=== PATIENT | male | born 1940 | race Caucasian/White ===

== ENCOUNTER 2022-06-06 11:03 | Outpatient (REF) | payer MEDICARE, SELFPAY ==
--- NOTE | ~2022-06-06 | XR_ITS ---
EXAMINATION: XR SINUSES CLINICAL INFORMATION: Sinusitis COMPARISON: None TECHNIQUE: 3 views of the sinuses were obtained. FINDINGS: Paranasal sinuses appear clear without air-fluid levels. No fractures are identified. No radiodense foreign bodies. The mastoid air sinuses are well aerated and clear. XR/XR sinus min 3V IMPRESSION: Unremarkable sinus exam. No radiopaque foreign body seen.
== END 2022-06-06 11:04 | disposition home or self-care (01) ==
LOC: HO.XRAY 11:03
PROVIDERS: PCP Family Medicine; Visit Provider Otolaryngology
DX: J01.91 Acute recurrent sinusitis, unspecified (principal)
CPT/HCPCS: 70220

== ENCOUNTER 2022-10-28 08:34 | Outpatient (REF) | payer MEDICARE, SELFPAY ==
[2022-10-28 11:24] LABS: MANUAL DIFF FLAG NO
[2022-10-28 11:48] LABS: Basophils Absolute Auto 0.1 X10*3/uL (0.0-0.2); Basophils Percent Auto 0.8 % (0-2); Eosinophils Absolute Auto 0.1 X10*3/uL (0.0-0.4); Eosinophils Percent Auto 2.2 % (0-4); Hematocrit 37.8 % (42.0-52.0); Hemoglobin 13.1 g/dl (14.0-18.0); Imm Gran Abs Auto 0.03 X10*3/uL (0.00-0.03); Imm Gran Pct Auto 0.5 % (0.0-0.4); Lymphocytes Absolute Auto 1.9 X10*3/uL (1.2-4.9); Lymphocytes Percent Auto 31.3 % (20-40); Mean Corpuscular HGB Conc 34.7 g/dl (31.0-36.0); Mean Corpuscular Hemoglobin 32.3 pg (27.0-33.0); Mean Corpuscular Volume 93.1 fL (80.0-98.0); Mean Platelet Volume 10.2 fL (9.4-12.4); Monocytes Absolute Auto 0.5 X10*3/uL (0.1-1.2); Monocytes Percent Auto 8.6 % (2-11); Neutrophils Absolute Auto 3.4 x10*3/uL (2.0-8.3); Neutrophils Percent Auto 56.6 % (45-73); Platelet Count 140 X10*3/uL (160-400); Red Blood Count 4.06 X10*6/uL (4.60-5.80); Red Cell Distribution Width 12.3 % (11.0-16.0)
[2022-10-28 11:49] LABS: Appearance Urine Clear; Color Urine Yellow; Glucose Urine UA Negative (Negative); Leukocyte Esterase Urine Negative (Negative); Nitrite Urine Negative (Negative); PH 6.5 (5.0-9.0); Specific Gravity - Urine 1.015 (1.005-1.025); UMIC TRIGGER UA YES; Urine Blood Negative (Negative); Urine Ketones Negative (Negative); Urine Protein 30 (1+) mg/dL (Neg-Trace)
[2022-10-28 11:53] LABS: Estimated Average Glucose 140 mg/dL; Hemoglobin A1c % 6.5 %
[2022-10-28 11:56] LABS: Bacteria Urine None Seen (None Seen); Hyaline Casts Urine 0-2 /LPF (0-2); RBC Urine 0-2 /HPF (0-2); Squamous Epithelial Cell Urine 0-2 /HPF (0-2); WBC Urine 0-5 /HPF (0-5)
[2022-10-28 12:31] LABS: Alanine Aminotransferase 56 U/L (0-40); Albumin Level 4.3 g/dL (3.5-5.0); Alkaline Phosphatase 74 U/L (39-117); Anion Gap 14 (12-20); Aspartate Amino Transferase 52 U/L (5-37); Bilirubin Total 0.7 mg/dL (0.0-1.0); Blood Urea Nitrogen 13 mg/dL (9-16); Calcium 9.1 mg/dL (8.4-10.2); Carbon Dioxide 26 mmol/L (22-29); Chloride 104 mmol/L (96-108); Cholesterol 237 mg/dL; Estimated Glomerular Filt Rate > 60; Glucose Fasting 143 mg/dL (60-99); HDL Cholesterol 73 mg/dL; Potassium 3.8 mmol/L (3.3-5.1); Sodium 140 mmol/L (135-145); Total Protein 7.2 g/dL (6.5-8.0); Triglycerides 651 mg/dL
[2022-10-28 12:34] LABS: Prostate Specific Antigen Scr 2.12 ng/mL (<0.05-4.0); TSH reflex Free T4 2.22 uIU/mL (0.32-4.0)
[2022-10-28 12:39] LABS: Creatinine Urine 88.89 mg/dL; Microalbum/Creatinine Ratio Ur 143.9 ug/mg cr
== END 2022-10-28 08:35 | disposition home or self-care (01) ==
LOC: HO.WFDLDS 08:34
PROVIDERS: Visit Provider Family Medicine
DX: Z00.00 Encounter for general adult medical examination without abnormal findings (principal); I10 Essential (primary) hypertension; R73.01 Impaired fasting glucose; Z12.5 Encounter for screening for malignant neoplasm of prostate
CPT/HCPCS: 36415; 80053; 80061; 81001; 82043; 83036; 84153; 84443; 85025

== ENCOUNTER 2023-02-05 09:50 | Outpatient (REF) | payer MEDICARE, SELFPAY ==
[2023-02-05 11:15] LABS: MANUAL DIFF FLAG NO
[2023-02-05 11:38] LABS: Basophils Absolute Auto 0.1 X10*3/uL (0.0-0.2); Eosinophils Absolute Auto 0.4 X10*3/uL (0.0-0.4); Eosinophils Percent Auto 6.1 % (0-4); Hematocrit 37.1 % (42.0-52.0); Hemoglobin 12.6 g/dl (14.0-18.0); Imm Gran Abs Auto 0.03 X10*3/uL (0.00-0.03); Imm Gran Pct Auto 0.5 % (0.0-0.4); Lymphocytes Absolute Auto 1.4 X10*3/uL (1.2-4.9); Lymphocytes Percent Auto 22.6 % (20-40); Mean Corpuscular Hemoglobin 31.7 pg (27.0-33.0); Mean Corpuscular Volume 93.2 fL (80.0-98.0); Mean Platelet Volume 10.5 fL (9.4-12.4); Monocytes Absolute Auto 0.6 X10*3/uL (0.1-1.2); Monocytes Percent Auto 9.9 % (2-11); Neutrophils Absolute Auto 3.6 x10*3/uL (2.0-8.3); Neutrophils Percent Auto 59.9 % (45-73); Platelet Count 149 X10*3/uL (160-400); Red Blood Count 3.98 X10*6/uL (4.60-5.80); Red Cell Distribution Width 12.2 % (11.0-16.0); White Blood Count 6.1 X10*3/uL (4.8-10.8)
[2023-02-05 11:41] LABS: Appearance Urine Clear; Color Urine Yellow; Glucose Urine UA Negative (Negative); Leukocyte Esterase Urine Negative (Negative); Nitrite Urine Negative (Negative); PH 5.5 (5.0-9.0); Specific Gravity - Urine 1.025 (1.005-1.025); UMIC TRIGGER UA YES; Urine Blood Negative (Negative); Urine Ketones Negative (Negative); Urine Protein 30 (1+) mg/dL (Neg-Trace)
[2023-02-05 11:51] LABS: Bacteria Urine None Seen (None Seen); Hyaline Casts Urine 0-2 /LPF (0-2); RBC Urine 0-2 /HPF (0-2); Squamous Epithelial Cell Urine 0-2 /HPF (0-2); WBC Urine 0-5 /HPF (0-5)
[2023-02-05 12:26] LABS: Alanine Aminotransferase 32 U/L (0-40); Albumin Level 4.1 g/dL (3.5-5.0); Alkaline Phosphatase 46 U/L (39-117); Anion Gap 14 (12-20); Aspartate Amino Transferase 31 U/L (5-37); Bilirubin Total 0.6 mg/dL (0.0-1.0); Blood Urea Nitrogen 19 mg/dL (9-16); Calcium 9.4 mg/dL (8.4-10.2); Carbon Dioxide 21 mmol/L (22-29); Chloride 110 mmol/L (96-108); Cholesterol 164 mg/dL; Estimated Glomerular Filt Rate > 60; Glucose Fasting 131 mg/dL (60-99); HDL Cholesterol 71 mg/dL; LDL Cholesterol Calculated 74 mg/dl; Potassium 3.8 mmol/L (3.3-5.1); Sodium 141 mmol/L (135-145); Triglycerides 99 mg/dL
[2023-02-07 17:58] LABS: LDL Cholesterol Direct 78 mg/dL (<100)
== END 2023-02-05 09:51 | disposition home or self-care (01) ==
LOC: HO.WFDLDS 09:50
PROVIDERS: Visit Provider Family Medicine
DX: Z00.00 Encounter for general adult medical examination without abnormal findings (principal); R74.8 Abnormal levels of other serum enzymes; D64.9 Anemia, unspecified; E78.5 Hyperlipidemia, unspecified
CPT/HCPCS: 36415; 80053; 80061; 81001; 83721; 85025

== ENCOUNTER 2023-02-17 13:17 | Outpatient (AMB) | payer MEDICARE, SELFPAY ==
--- NOTE | 2023-02-17 13:21 | MHC.PC.OV ---
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 Accompanied by: Self / Same As Patient Allergies metformin Allergy (Verified 02/17/23 13:40) Diarrhea Medication List - Last Reconciled 02/17/23 by Raysa Littlejohn CNP amlodipine 5 mg PO QAM 90 days atorvastatin 80 mg PO DAILY 90 days fenofibrate micronized 200 mg PO QPM 90 days glipizide ER 10 mg PO QAM 90 days lisinopril 40 mg PO QAM 90 days metoprolol succinate ER 50 mg PO QAM 90 days Tobacco use date assessed: 02/17/23 Fall risk assessment: 2 + Falls in past year Last assessed Fall Risk: 02/17/23 Dental Screening Dental Screen Date: 02/17/23 Did you have a dental visit in the last 12 months?: No Did you have a dental problem in the last 6 months where you did not have access to dental care?: No Was dental information given to patient?: Patient has dentist HPI HPI Comments History of Present Illness Details 82-year-old male presents for review of recent lab results. He had elevated lipids and liver enzymes. He also had mild anemia. He notes that he has been taking his medications as prescribed. He reports chronic bilateral shoulder pain, left worse than right. He takes naproxen with significant improvement. He notes that he drinks alcohol socially, 1 glass of mixed whisky daily, 1 beers on weekends. 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 Seth Zhang, Vicky Wright, Johnie Crowley and colleagues, with an educational heike from [employer]. Review of Systems Const Details: Const Denies chills, Denies fatigue, Denies fever(s), Denies headache(s) and Denies weakness ENT Denies dizziness and Denies headache(s) Card Denies chest pain, Denies lightheadedness, Denies dyspnea and Denies other (Palpitations) Resp Denies cough, Denies dyspnea, Denies wheezing and Denies other ( shortness of breath) GI Denies abdominal pain, Denies melena, Denies hematochezia, Denies change in bowel habits, Denies dyspepsia and Denies nausea Denies hematuria and Denies dysuria Musc Reports bilat shoulder pain, Denies abnormal gait, Denies numbness and Denies tingling Skin/Breast Denies rash, Denies unusual bruising and Denies wounds Neuro Denies abnormal gait, Denies dizziness, Denies headache(s), Denies memory loss, Denies numbness, Denies Sensory deficit (Neuro), Denies tingling and Denies weakness Psych Denies anxiety and Denies depression Endo Denies fatigue Aller/Immun Denies wheezing Physical exam (Primary Care) Vital Signs: Last Vital Signs Pulse 80 02/17/23 13:22 BP 132/72 02/17/23 13:22 Pulse Ox 98 02/17/23 13:22 BMI result Body Mass Index 27.8 Tobacco/Smoking Status: Tobacco use Status Tobacco use date assessed 02/17/23 02/17/23 13:22 Patient Tobacco Use Status Never used Tobacco 02/17/23 13:22 e-Cigarette/Vaping Use Never Used 02/17/23 13:22 Thrive Assessment: Date of Thrive Assessment Date Thrive assessed 08/23/22 02/17/23 13:22 Const Other: General: no acute distress and well developed Nutritional Appearance: well nourished Orientation/consciousness: patient oriented x3 HENMT Head: Yes normocephalic and Yes atraumatic Eyes General: appearance normal, both eyes and all related structures Pupils: Equal, round and reactive pupils present EOM: EOMs intact bilaterally Resp Effort & Inspection: normal respiratory effort Auscultation: clear to auscultation bilaterally Cardio Rate: regular rate Rhythm: regular rhythm Heart sounds: S1 normal heart sound present, S2 normal heart sound present, no gallops, no murmurs and no rubs GI Palpation (GI): No Abdominal aortic bruit present, Soft to palpation, nontender, No hepatosplenomegaly present and No Rebound tenderness present Auscultation: normal bowel sounds General: Yes no CVA tenderness Back/Spine/Pelvis Back: no CVA tenderness Cervical Spine: cervical ROM normal and No Cervical spine tenderness Thoracic/Lumbar Spine: thoraco-lumbar ROM normal, No pain with thoraco-lumbar ROM, No thoracic spinal tenderness and No lumbar spinal tenderness Extrem General: Yes normal to inspection, No edema and No calf tenderness Limited ROM of the left shoulder Skin General: warm and dry. Normal skin color. Normal skin turgor Lesions: no lesions Rashes: no rashes Trauma: no lacerations or abrasions Wounds: no wounds Nails: normal Neuro General: patient oriented x3, gait normal and no focal neuro deficit Cranial nerves: Yes Equal, round and reactive pupils present Cognition (Neuro): normal cognition Gait exam (Neuro): Normal gait present Sensory Exam: No Sensory deficit (Neuro) Psych Affect: normal affect Results AMB Hemoglobin A1c AMB Hemoglobin A1c 6.4 % Last Edit by Gal Guerrero CMA on 02/17/23 14:01 Assessment and Plan Assessment & Plan (1) Elevated liver enzymes: Code(s): R74.8 - Abnormal levels of other serum enzymes Plan: Liver enzymes have improved and currently normal Healthy diet encouraged Advised to avoid alcohol consumption Verbalized understanding and agreed with the plan. (2) Alcohol use: Code(s): Z78.9 - Other specified health status Plan: As above (3) Hyperlipidemia: Code(s): E78.5 - Hyperlipidemia, unspecified Plan: He is on Atorvastatin and Fenofibrate Lipid levels have improved and currently WNL Continue with current treatment regimen Routine exercise encouraged Follow-up with PCP as planned Verbalized understanding and agreed with treatment plan. (4) Mild anemia: Code(s): D64.9 - Anemia, unspecified Plan: Patient has a normocytic mild anemia with mild thrombocytopenia Follow-up with PCP as planned. May referred to Hematology and Oncology Verbalized understanding and agreed with plan. (5) Hypertension: Code(s): I10 - Essential (primary) hypertension Plan: His blood pressure is controlled, 132/72, slightly above goal of less than 130/80 Continue current treatment regimen Low-sodium diet encouraged Follow-up with PCP as planned Verbalized understanding and agreed with treatment plan. (6) Diabetes: Code(s): E11.9 - Type 2 diabetes mellitus without complications Plan: His A1c 6.4% today, within goal of less than 7.0% Continue with current treatment regimen ADA diet and routine exercise encouraged Follow-up with PCP as planned Verbalized understanding and agreed with treatment plan. (7) Bilateral shoulder pain: Code(s): M25.511 - Pain in right shoulder; M25.512 - Pain in left shoulder Plan: He reports chronic bilateral shoulder pain, left worse than right. He takes naproxen with significant improvement. Limited ROM of the left shoulder, no overt trauma or injury noted Continue with current treatment regimen Warm/cold compresses encouraged Return with new or worsening symptoms Verbalized understanding and agreed with treatment plan. Orders: Orders AMB Hemoglobin A1c Today E11.9 - Type 2 diabetes mellitus without complications AMB Hemoglobin A1c Today Z13.9 - Encounter for screening, unspecified Coding Level of Care Code Est Pt Level 4 (97769) Diagnoses Elevated liver enzymes R74.8 Alcohol use Z78.9 Hyperlipidemia E78.5 Mild anemia D64.9 Hypertension I10 Diabetes E11.9 Bilateral shoulder pain M25.511; M25.512 Time Spent (min) 35
[2023-02-17 13:22] VITALS: BP 132/72; PULSE 80; O2SAT 98; BMI 27.8
== END 2023-02-17 14:11 | disposition home or self-care (01) ==
PROVIDERS: PCP Family Medicine; Visit Provider Nurse Practitioner Family
DX: R74.8 Abnormal levels of other serum enzymes (principal); I10 Essential (primary) hypertension; E11.9 Type 2 diabetes mellitus without complications; Z78.9 Other specified health status; E78.5 Hyperlipidemia, unspecified; D64.9 Anemia, unspecified; M25.511 Pain in right shoulder; M25.512 Pain in left shoulder
CPT/HCPCS: 83036; 99214

== ENCOUNTER 2023-03-07 10:46 | Outpatient (AMB) | payer MEDICARE, SELFPAY ==
[2023-03-07 10:49] VITALS: BP 130/76; PULSE 75; O2SAT 98; BMI 27.7
--- NOTE | 2023-03-07 10:49 | A.OFFPC_ITS ---
Vital Signs 03/07/23 10:49 Height 5 ft 9 in Weight 187 lb 6 oz BMI 27.7 BP 130/76 Blood Pressure Location Lt brachial Position Sitting Pulse 75 Pulse Source Pulse Oximeter Pulse Oximetry (%) 98 Oxygen Delivery Method Room Air Intake Visit Reasons: L shoulder pain Intake Note: Patient is here with complaint of left shoulder pain and would like recommendation to orthopedic doctors. Allergies metformin Allergy (Verified 03/07/23 10:56) Diarrhea Tobacco use date assessed: 03/07/23 Fall risk assessment: 2 + Falls in past year Last assessed Fall Risk: 03/07/23 Dental Screening Dental Screen Date: 03/07/23 Did you have a dental visit in the last 12 months?: No Did you have a dental problem in the last 6 months where you did not have access to dental care?: No Was dental information given to patient?: No HPI L shoulder pain HPI Details 82 y/o male presents today with L shoulder pain. Has reported chronic bilateral shoulder pain L worse than R and has been taking naproxen for relief. 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 Seth Zhang, Vicky Wright, Johnie Crowley and colleagues, with an educational heike from [employer]. Review of Systems Musc Details: L shoulder pain Physical exam (Primary Care) Vital Signs: Last Vital Signs Pulse 75 03/07/23 10:49 BP 130/76 03/07/23 10:49 Pulse Ox 98 03/07/23 10:49 Oxygen Delivery Method Room Air 03/07/23 10:49 BMI result Body Mass Index 27.7 Tobacco/Smoking Status: Tobacco use Status Tobacco use date assessed 03/07/23 03/07/23 11:02 Patient Tobacco Use Status Never used Tobacco 03/07/23 11:02 e-Cigarette/Vaping Use Never Used 03/07/23 11:02 Thrive Assessment: Date of Thrive Assessment Date Thrive assessed 08/23/22 03/07/23 11:02 Assessment and Plan Assessment & Plan (1) Left shoulder pain: Code(s): M25.512 - Pain in left shoulder Plan: Left shoulder pain with decreased abduction and internal rotation He can continue using naproxen once daily and I will give him diclofenac gel as well Can use ice/heat Will start physical therapy He has had surgery on his right shoulder for similar symptoms. He would like referral to orthopedics and I have referred him to Dr. Bragg Orders: Orders PT Evaluation and Treatment Today M25.512 - Pain in left shoulder Referrals Orthopedics Referral M25.512 - Pain in left shoulder Coding Level of Care Code Est Pt Level 3 (28442) Diagnoses Left shoulder pain M25.512
== END 2023-03-07 12:00 | disposition home or self-care (01) ==
PROVIDERS: PCP Family Medicine; Visit Provider Family Medicine
DX: M25.512 Pain in left shoulder (principal)
CPT/HCPCS: 99213

== ENCOUNTER 2023-03-27 12:21 | Outpatient (REF) | payer MEDICARE, SELFPAY ==
--- NOTE | ~2023-03-27 | XR_ITS ---
EXAMINATION: XR SHOULDER, LEFT CLINICAL INFORMATION: Pain. COMPARISON: None available. TECHNIQUE: 3 views of the left shoulder. FINDINGS: Acromial spurring is present here. Irregularity at the insertion of the superior rotator cuff. The glenohumeral articulation is within normal limits. No acute bony finding. XR/XR shoulder LT min 2V IMPRESSION: Degenerative changes as described. Findings may well preclude to impingement. If further evaluation is warranted, consider MR.
== END 2023-03-27 12:22 | disposition home or self-care (01) ==
LOC: HO.HOSX 12:21
PROVIDERS: Visit Provider Orthopaedic Surgery
DX: Z13.89 Encounter for screening for other disorder (principal)

== ENCOUNTER 2023-04-10 08:42 | Outpatient (AMB) | payer MEDICARE, SELFPAY ==
--- NOTE | 2023-04-10 08:48 | A.OFFVIS_ITS ---
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 He was referrd by his PCP who also provided him with a diclofenac topical gel. Hx of right RTC Repair. He reports that he has had ongoing shoulder pain for about 2 months now. He does not recall any injury, but he states that this shoulder is feeling about the same as the right did prior to surgery. He is interested in having a cortisone injection as he has had them in the right shoulder with good relif. 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 HPI Details 82 year old with left shoulder pain for 6 months No injury Pain at night and with overhead work [facility] Medical History (Updated 04/11/23 @ 08:41 by Daniele Bragg MD) Dysfunction of left rotator cuff Surgical History (Updated 04/10/23 @ 08:53 by Lacey Busch [facility]) H/O cervical spine surgery H/O rotator cuff surgery History of hip replacement Family History Father Diabetes Social History Household Members: Spouse Housing: House Alcohol intake: current Alcohol intake frequency: 0-2 drinks per day Patient Tobacco Use Status: Never used Tobacco e-Cigarette/Vaping Use: Never Used service: No Current occupational status: employed (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 Site was prepped using aseptic technique. Patient tolerated the procedure well. Primary Site: left shoulder Coding 79612 - Glenohumeral/Tronchanteric Bursa/Intraarticular Procedure code (CPT) selection complete Results Reviewed Results Reviewed: 04/10/23 08:54 BUPivacaine MPF 0.25 % [Sensorcaine-MPF 0.25% 10 ML] 10 ml .ROUTE .STK-MED ONE Lidocaine HCl 2 % MPF [Xylocaine 2 % MPF] 5 ml .ROUTE .STK-MED ONE 04/10/23 08:55 dexAMETHasone sod phosphate [Decadron] 4 mg .ROUTE .STK-MED ONE I personally reviewed relevant radiographs. Subacormial spurring but otherwise unremarkable left shoulder radiograph Assessment & Plan Assessment & Plan (1) Dysfunction of left rotator cuff: Code(s): M67.912 - Unspecified disorder of synovium and tendon, left shoulder Plan: Left shoulder pain with RTC weakness and unremarkable radiographs. Injected left shoulder and discussed PT. Will defer on PT for now and f/u PRN Orders: Orders XR shoulder LT min 2V 04/10/23 M25.519 - Pain in unspecified shoulder Coding Level of Care Code New Pt Level 3 (29802) Diagnoses Dysfunction of left rotator cuff M67.912 CPT Codes Coding - Joint 7: 08052 - Glenohumeral/Tronchanteric Bursa/Intraarticular ([id number])
[2023-04-10 08:50] VITALS: BMI 27.6
== END 2023-04-10 09:13 | disposition home or self-care (01) ==
PROVIDERS: PCP Family Medicine; Visit Provider Orthopaedic Surgery
DX: M67.912 Unspecified disorder of synovium and tendon, left shoulder (principal)
CPT/HCPCS: 20610; 99204

== ENCOUNTER → 2023-04-10 08:42 | Outpatient (BNVA) | payer MEDICARE, SELFPAY | PROVIDERS: PCP Family Medicine; Visit Provider Orthopaedic Surgery | DX: M67.912 Unspecified disorder of synovium and tendon, left shoulder (principal); M25.512 Pain in left shoulder | CPT/HCPCS: 20610; 73030; 99202; J1100 ==

== ENCOUNTER 2023-05-07 08:49 | Outpatient (REF) | payer MEDICARE, SELFPAY ==
[2023-05-07 11:23] LABS: MANUAL DIFF FLAG NO
[2023-05-07 11:51] LABS: Basophils Percent Auto 0.8 % (0-2); Eosinophils Absolute Auto 0.1 X10*3/uL (0.0-0.4); Eosinophils Percent Auto 3.6 % (0-4); Hematocrit 35.8 % (42.0-52.0); Hemoglobin 12.5 g/dl (14.0-18.0); Imm Gran Abs Auto 0.01 X10*3/uL (0.00-0.03); Imm Gran Pct Auto 0.3 % (0.0-0.4); Lymphocytes Absolute Auto 0.9 X10*3/uL (1.2-4.9); Mean Corpuscular HGB Conc 34.9 g/dl (31.0-36.0); Mean Corpuscular Hemoglobin 31.6 pg (27.0-33.0); Mean Corpuscular Volume 90.4 fL (80.0-98.0); Mean Platelet Volume 10.4 fL (9.4-12.4); Monocytes Absolute Auto 0.6 X10*3/uL (0.1-1.2); Monocytes Percent Auto 17.4 % (2-11); Neutrophils Percent Auto 53.9 % (45-73); Platelet Count 104 X10*3/uL (160-400); Red Blood Count 3.96 X10*6/uL (4.60-5.80); Red Cell Distribution Width 12.5 % (11.0-16.0); White Blood Count 3.6 X10*3/uL (4.8-10.8)
[2023-05-07 12:03] LABS: Estimated Average Glucose 166 mg/dL; Hemoglobin A1c % 7.4 % (<6.0)
[2023-05-07 12:05] LABS: Cholesterol 187 mg/dL (<200); HDL Cholesterol 63 mg/dL (>40); LDL Cholesterol Calculated 95 mg/dL (<100); Triglycerides 148 mg/dL (<150)
[2023-05-07 12:39] LABS: Creatinine Urine 117.33 mg/dL; Microalbum/Creatinine Ratio Ur 148.2 ug/mg cr (<30)
== END 2023-05-07 08:50 | disposition home or self-care (01) ==
LOC: HO.WFDLDS 08:49
PROVIDERS: Visit Provider Family Medicine
DX: Z00.00 Encounter for general adult medical examination without abnormal findings (principal); D64.9 Anemia, unspecified; E11.9 Type 2 diabetes mellitus without complications; E78.5 Hyperlipidemia, unspecified; I10 Essential (primary) hypertension
CPT/HCPCS: 36415; 80061; 81001; 82043; 82570; 83036; 85025

== ENCOUNTER 2023-05-09 08:32 | Outpatient (AMB) | payer MEDICARE, SELFPAY ==
--- NOTE | 2023-05-09 08:34 | A.OFFPC_ITS ---
Vital Signs 05/09/23 08:35 Height 5 ft 9 in Weight 192 lb 6 oz BMI 28.4 BP 124/52 L Blood Pressure Location Lt brachial Position Sitting Respiration 13 Pulse 80 Pulse Source Pulse Oximeter Temp 98.7 F Temp Source Oral Pulse Oximetry (%) 98 Oxygen Delivery Method Room Air Intake Visit Reasons: f/u hyperlipidemia Intake Note: Patient presents to the office to follow up with lab work. Patient would like a print out of todays visit as well as his lab results. Patient has a concern for his right large toe. Patient reports his toe appears with a discoloration and it stings. Patient also has a concern for his left rotator cuff. Patient reports the left rotator cuff is painful. Patient reports he saw Dr. Bragg and he was informed he needed a total replacement of his shoulder. Court Collections Officer Required: No Accompanied by: Self / Same As Patient Allergies metformin Allergy (Verified 05/09/23 08:41) Diarrhea Tobacco use date assessed: 03/07/23 Fall risk assessment: 2 + Falls in past year Last assessed Fall Risk: 05/09/23 Dental Screening Dental Screen Date: 05/09/23 Did you have a dental visit in the last 12 months?: No Did you have a dental problem in the last 6 months where you did not have access to dental care?: No Was dental information given to patient?: Patient declined HPI f/u hyperlipidemia HPI Details 82 y/o male presents to f/u HLD. Labs were drawn 05/07/23. Reviewed labs with pt. Ongoing anemia. Platelet count has lowered. A1c 7.4%. He reports he has not been watching his diet recently. Triglycerides 148. TC 187. LDL 95. HDL 63. Pt has complaints of L shoulder today. HPI Comments History of Present Illness Details Documentation assistance for Sebastian Rivera MD, was provided by Garrett Velazquez,?Radial Drill Press Operator on 05/09/2023 9:11 AM EST. I, Dr. Rivera, have read, observed, and verified documentation.? 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 Seth Zhang, Vicky Wright, Johnie Crowley and colleagues, with an educational heike from [employer]. Review of Systems Const Denies chills, Denies fatigue, Denies fever(s), Denies headache(s) and Denies weakness ENT Denies dizziness and Denies headache(s) Card Denies chest pain, Denies lightheadedness, Denies dyspnea and Denies other (Palpitations) Resp Denies cough, Denies dyspnea, Denies wheezing and Denies other ( shortness of breath) Musc Denies numbness and Denies tingling Neuro Denies dizziness, Denies headache(s), Denies numbness, Denies tingling, Denies paresthesias and Denies weakness Psych Denies anxiety and Denies depression Endo Denies fatigue Aller/Immun Denies wheezing Physical exam (Primary Care) Vital Signs: Last Vital Signs Temp 98.7 F 05/09/23 08:35 Pulse 80 05/09/23 08:35 Resp 13 05/09/23 08:35 BP 124/52 L 05/09/23 08:35 Pulse Ox 98 05/09/23 08:35 Oxygen Delivery Method Room Air 05/09/23 08:35 BMI result Body Mass Index 28.4 Tobacco/Smoking Status: Tobacco use Status Tobacco use date assessed 03/07/23 05/09/23 08:34 Patient Tobacco Use Status Never used Tobacco 05/09/23 08:34 e-Cigarette/Vaping Use Never Used 05/09/23 08:34 Thrive Assessment: Date of Thrive Assessment Date Thrive assessed 08/23/22 05/09/23 08:34 Const General: no acute distress and well developed Nutritional Appearance: well nourished Orientation/consciousness: patient oriented x3 [facility] Head: Yes normocephalic and Yes atraumatic Eyes General: appearance normal, both eyes and all related structures Pupils: Equal, round and reactive pupils present EOM: EOMs intact bilaterally Resp Effort & Inspection: normal respiratory effort Auscultation: clear to auscultation bilaterally Cardio Rate: regular rate Rhythm: regular rhythm Heart sounds: S1 normal heart sound present, S2 normal heart sound present, no gallops, no murmurs and no rubs Neuro General: patient oriented x3 and gait normal Cranial nerves: Yes Equal, round and reactive pupils present Psych Affect: normal affect Assessment and Plan Assessment & Plan (1) Hyperlipidemia: Code(s): E78.5 - Hyperlipidemia, unspecified Plan: Lipids?are?controlled?on?atorvastatin?and?fenofibrate Continue?current?medication?regimen Continue?to?work?at?a?diet?low?in?saturated?fats?and?cholesterol (2) Diabetes: Code(s): E11.9 - Type 2 diabetes mellitus without complications Plan: A1c?has?worsened?and?is?above?goal?of?less?than?7.0% Encouraged?improved?diabetic?diet Continue?glipizide Added?Januvia (3) Mild anemia: Code(s): D64.9 - Anemia, unspecified Plan: Patient?has?persistent?normocytic?anemia?which?is?mild?but?has?worsened?slightly ?and?also?leukopenia?and?thrombocytopenia;?pancytopenia Referred?to?Hematology-Oncology (4) Left shoulder pain: Code(s): M25.512 - Pain in left shoulder Plan: Start?physical?therapy (5) Toe pain, right: Code(s): M79.674 - Pain in right toe(s) Plan: Referred?to?Podiatry Check?x-ray (6) Pain of right great toe: Code(s): M79.674 - Pain in right toe(s) (7) Imbalance: Code(s): R26.89 - Other abnormalities of gait and mobility Plan: Mild?imbalance?when?he?stands?up.??No?chest?pain?or?other?associated?symptoms. Likely?some?orthostasis?and?I?encouraged?him?to?increase?hydration (8) Pancytopenia: Code(s): D61.818 - Other pancytopenia Plan: As?above,?referred?to?Hematology-Oncology Orders: Orders XR foot RT 2V Today M79.674 - Pain in right toe(s) PT Evaluation and Treatment Today M25.512 - Pain in left shoulder Lipid Panel Today E78.5 - Hyperlipidemia, unspecified, Z00.00 - Encounter for general adult medical examination without abnormal findings Comprehensive Benedict. Panel Fast Today E78.5 - Hyperlipidemia, unspecified, Z00.00 - Encounter for general adult medical examination without abnormal findings Referrals Hematology & Oncology Referral D61.818 - Other pancytopenia Podiatry Referral E11.9 - Type 2 diabetes mellitus without complications, M79.674 - Pain in right toe(s) Medications: New tamsulosin (Flomax) 0.4 mg PO DAILY 30 days 30 caps 1RF sitagliptin phosphate (Januvia) 25 mg PO DAILY 30 days 30 tabs 3RF Coding Level of Care Code Est Pt Level 4 (31428) Diagnoses Hyperlipidemia E78.5 Diabetes E11.9 Mild anemia D64.9 Left shoulder pain M25.512 Toe pain, right M79.674 Pain of right great toe M79.674 Imbalance R26.89 Pancytopenia D61.818
[2023-05-09 08:35] VITALS: BP 124/52; PULSE 80; RESP 13; TEMP 37.1; O2SAT 98; BMI 28.4
== END 2023-05-09 09:17 | disposition home or self-care (01) ==
PROVIDERS: PCP Family Medicine; Visit Provider Family Medicine
DX: E78.5 Hyperlipidemia, unspecified (principal); D61.818 Other pancytopenia; E11.9 Type 2 diabetes mellitus without complications; D64.9 Anemia, unspecified; M25.512 Pain in left shoulder; M79.674 Pain in right toe(s); R26.89 Other abnormalities of gait and mobility
CPT/HCPCS: 99214

== ENCOUNTER 2023-07-17 11:09 | Outpatient (AMB) | payer MEDICARE, SELFPAY ==
--- NOTE | 2023-07-17 11:15 | MHC.OFFVIS ---
Intake Vital Signs 07/17/23 11:16 Height 5 ft 9 in Weight 192 lb BMI 28.4 Intake Visit Reasons: left shoulder Inj, last inj 04/10/23 Intake Note: Steven is an 82 year old male who presents today for a right shoulder injection, last injection done 04/10/23. This injection gave him about 2 months of relief. He would like to repeat injection Allergies metformin Allergy (Verified 05/09/23 08:41) Diarrhea HPI left shoulder Inj, last inj 04/10/23 HPI Details Steven is an 82 year old man who returns to discuss his left RTC dysfunction. He was last seen, and injected, on 04/10/23, wit ~2 months of relief. His pain has returned and he would like a repeat injection. 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, 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 Current occupational exposures/hazards: No Cognitive needs: No Hearing needs: No Vision needs: Yes Review of Systems Const All systems reviewed & are unremarkable except as noted in HPI and below Physical Exam Vital Signs: BMI result Body Mass Index 28.4 Const General: no acute distress, alert and awake Orientation/consciousness: patient oriented x3 HEENT Head: Yes normocephalic and Yes atraumatic Eyes EOM: EOMs intact bilaterally Resp Effort & Inspection: normal respiratory effort and able to speak in complete sentences Cardio Jugular venous distension: no JVD Skin General skin exam: turgor normal Rashes: no rashes Neuro General: patient oriented x3 Extrem Other: 4-/5 EC testing ER to 25 deg Psych Appearance: grossly normal Affect: normal affect Attitude: cooperative Office Procedures Joint Injection/Drain Joint Injection/Drain Details: Injected 1 mL of Decadron and 3 mL 1% lidocaine and 3 mL of 0.25% Marcaine. Site was prepped using aseptic technique. Patient tolerated the procedure well. Primary Site: left shoulder Approach Used: posterolateral Coding 39823 - Large joint Procedure code (CPT) selection complete Results Reviewed Results Reviewed: I personally reviewed relevant radiographs. ACJ OA +SA spurring No GH OA Assessment & Plan Assessment & Plan (1) Dysfunction of left rotator cuff: Code(s): M67.912 - Unspecified disorder of synovium and tendon, left shoulder Plan: Injected left shouldr PT ordered Plan Scribed for Daniele Bragg MD by Fidel Anderson, senior medical technologist, on 07/17/23 at 11:20 AM, EST. Orders: Orders PT Evaluation and Treatment Today M67.912 - Unspecified disorder of synovium and tendon, left shoulder Coding Level of Care Code Est Pt Level 3 (91876) Diagnoses Dysfunction of left rotator cuff M67.912 CPT Codes Coding - Large joint: 45157 - Large joint ([id number])
[2023-07-17 11:16] VITALS: BMI 28.4
== END 2023-07-17 11:41 | disposition home or self-care (01) ==
PROVIDERS: PCP Family Medicine; Visit Provider Orthopaedic Surgery
DX: M67.912 Unspecified disorder of synovium and tendon, left shoulder (principal)
CPT/HCPCS: 20610; 99213

== ENCOUNTER → 2023-07-17 11:09 | Outpatient (BNVA) | payer MEDICARE, SELFPAY | PROVIDERS: PCP Family Medicine; Visit Provider Orthopaedic Surgery | DX: M67.912 Unspecified disorder of synovium and tendon, left shoulder (principal) | CPT/HCPCS: 20610; 99212; J0665; J1100 ==

== ENCOUNTER 2023-08-12 08:02 | Outpatient (REF) | payer MEDICARE, SELFPAY ==
[2023-08-12 12:06] LABS: Alanine Aminotransferase 28 U/L (0-40); Alkaline Phosphatase 57 U/L (39-117); Anion Gap 8 (12-20); Aspartate Amino Transferase 25 U/L (5-37); Bilirubin Total 0.3 mg/dL (0.0-1.0); Blood Urea Nitrogen 15 mg/dL (9-16); Calcium 9.6 mg/dL (8.4-10.2); Carbon Dioxide 27 mmol/L (22-29); Chloride 107 mmol/L (96-108); Cholesterol 175 mg/dL (<200); Estimated Glomerular Filt Rate 55; Glucose Fasting 261 mg/dL (60-99); HDL Cholesterol 60 mg/dL (>40); LDL Cholesterol Calculated 85 mg/dL (<100); Potassium 3.6 mmol/L (3.3-5.1); Sodium 138 mmol/L (135-145); Triglycerides 150 mg/dL (<150)
== END 2023-08-12 08:03 | disposition home or self-care (01) ==
LOC: HO.WFDLDS 08:02
PROVIDERS: Visit Provider Family Medicine
DX: Z00.00 Encounter for general adult medical examination without abnormal findings (principal); E78.5 Hyperlipidemia, unspecified
CPT/HCPCS: 36415; 80053; 80061

== ENCOUNTER 2023-08-27 09:37 | Outpatient (AMB) | payer MEDICARE, SELFPAY ==
[2023-08-27 09:40] VITALS: BP 130/78; PULSE 81; O2SAT 98; BMI 27.9
--- NOTE | 2023-08-27 09:40 | MHC.PC.OV ---
Vital Signs 08/27/23 09:40 Height 5 ft 9 in Weight 189 lb BMI 27.9 BP 130/78 Blood Pressure Location Lt brachial Position Sitting Pulse 81 Pulse Source Pulse Oximeter Pulse Oximetry (%) 98 Oxygen Delivery Method Room Air Intake Visit Reasons: f/u HLD and diabetes Intake Note: Patient is here to follow up on HLD and diabetes. Allergies metformin Allergy (Verified 08/27/23 09:44) Diarrhea Tobacco use date assessed: 08/27/23 Fall risk assessment: 2 + Falls in past year Last assessed Fall Risk: 08/27/23 HPI f/u HLD and diabetes HPI Details 83 y/o male presents to f/u HLD and diabetes. Labs were drawn 08/12/23. Reviewed labs with pt. Fasting glucose 261. Last A1c in April 7.4%. Triglycerides 150. TC 175. LDL 85. HDL 60. He is on artovastatin 80mg daily. Blood pressure today is 130/78. He is on lisinopril 40mg, metoprolol 50mg and amlodipine 5mg. A1c today 08/27/23 is 8.1%. 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 Seth Zhang, Vicky Wright, Johnie Crowley and colleagues, with an educational heike from [employer]. Review of Systems Const Denies chills, Denies fatigue, Denies fever(s), Denies headache(s) and Denies weakness ENT Denies dizziness and Denies headache(s) Card Denies chest pain, Denies lightheadedness, Denies dyspnea and Denies other (Palpitations) Resp Reports cough, Denies dyspnea and Denies wheezing Musc Denies numbness and Denies tingling Neuro Denies dizziness, Denies headache(s), Denies numbness, Denies tingling, Denies paresthesias and Denies weakness Psych Denies anxiety and Denies depression Endo Denies fatigue Aller/Immun Denies wheezing Physical exam (Primary Care) Vital Signs: Last Vital Signs Pulse 81 08/27/23 09:40 BP 130/78 08/27/23 09:40 Pulse Ox 98 08/27/23 09:40 Oxygen Delivery Method Room Air 08/27/23 09:40 BMI result Body Mass Index 27.9 Tobacco/Smoking Status: Tobacco use Status Tobacco use date assessed 08/27/23 08/27/23 09:44 Patient Tobacco Use Status Never used Tobacco 08/27/23 09:44 e-Cigarette/Vaping Use Never Used 08/27/23 09:44 Thrive Assessment: Date of Thrive Assessment Date Thrive assessed 08/23/22 08/27/23 09:44 Const General: no acute distress and well developed Nutritional Appearance: well nourished Orientation/consciousness: patient oriented x3 HENMT Head: Yes normocephalic and Yes atraumatic Eyes General: appearance normal, both eyes and all related structures Pupils: Equal, round and reactive pupils present EOM: EOMs intact bilaterally Resp Other: Mildly distant breath sounds with upper airway secretions Effort & Inspection: normal respiratory effort Cardio Rate: regular rate Rhythm: regular rhythm Heart sounds: S1 normal heart sound present, S2 normal heart sound present, no gallops, no murmurs and no rubs Neuro General: patient oriented x3 and gait normal Cranial nerves: Yes Equal, round and reactive pupils present Psych Affect: normal affect Assessment and Plan Assessment & Plan (1) Hyperlipidemia: Code(s): E78.5 - Hyperlipidemia, unspecified Plan: Lipids?are?well?controlled?on?atorvastatin?and?fenofibrate Continue?current?medication?regimen (2) Diabetes: Code(s): E11.9 - Type 2 diabetes mellitus without complications Plan: A1c?has?worsened?and?is?now?8.1%.??Goal?is?less?than?7.0% Increase?Januvia?from?25?mg?daily?to?50?mg?daily Continue?glipizide Encouraged?a?diet?lower?in?sugars?and?starches Encouraged?weight?loss (3) Hypertension: Code(s): I10 - Essential (primary) hypertension Plan: Blood?pressure?is?controlled Continue?current?medication?regimen (4) Pancytopenia: Code(s): D61.818 - Other pancytopenia Plan: Mild?pancytopenia.??Patient?drinks?daily?and?this?may?be?the?underlying?cause?of?a?mild?pancytopenia. He?was?referred?to?Hematology-Oncology?but?did?not?find?his?way?to?the?office?and?missed?his?appointment. Rechecking?CBC. May?need?referral?to?Hematology-Oncology?again. (5) Cough: Code(s): R05.9 - Cough, unspecified Plan: Chronic?cough?and?patient?was?told?that?he?has?chronic?bronchitis. Does?have?mildly?distant?breath?sounds?with?some?upper?airway?secretions Will?give?him?a?Z-Dexter?and?check?a?chest?x-ray. (6) Imbalance: Code(s): R26.89 - Other abnormalities of gait and mobility Plan: Patient?has?some?imbalance?and?recent?falls.??Has?some?lower?extremity?calf?and?posterior?thigh?weakness. Start?physical?therapy (7) Lower extremity weakness: Code(s): R29.898 - Other symptoms and signs involving the musculoskeletal system Plan: As?above Orders: Orders Basic Metabolic Panel Today D61.818 - Other pancytopenia AMB Hemoglobin A1c Today Z13.9 - Encounter for screening, unspecified XR chest 2V Today R05.9 - Cough, unspecified PT Evaluation and Treatment Today R26.89 - Other abnormalities of gait and mobility, R29.898 - Other symptoms and signs involving the musculoskeletal system Complete Blood Count Auto Diff Today D61.818 - Other pancytopenia Medications: New azithromycin (Zithromax Z-Dexter) take 500 mg today (day 1), then 250 mg for 4 days (days 2-5) PO 6 tabs 0RF 5 days R26.89 - Other abnormalities of gait and mobility Changed From sitagliptin phosphate (Januvia) 25 mg PO DAILY 30 days 30 tabs 3RF To sitagliptin phosphate 50 mg PO DAILY 30 days 30 tabs 3RF Coding Level of Care Code Est Pt Level 4 (65350) Diagnoses Hyperlipidemia E78.5 Diabetes E11.9 Hypertension I10 Pancytopenia D61.818 Cough R05.9 Imbalance R26.89 Lower extremity weakness R29.898
== END 2023-08-27 10:30 | disposition home or self-care (01) ==
PROVIDERS: PCP Family Medicine; Visit Provider Family Medicine
DX: E78.5 Hyperlipidemia, unspecified (principal); E11.9 Type 2 diabetes mellitus without complications; I10 Essential (primary) hypertension; D61.818 Other pancytopenia; R05.9 Cough, unspecified; R26.89 Other abnormalities of gait and mobility; R29.898 Other symptoms and signs involving the musculoskeletal system
CPT/HCPCS: 99214

== ENCOUNTER 2023-08-27 10:35 | Outpatient (REF) | payer MEDICARE, SELFPAY ==
[2023-08-27 11:33] LABS: MANUAL DIFF FLAG NO
[2023-08-27 11:45] LABS: Basophils Percent Auto 0.5 % (0-2); Eosinophils Absolute Auto 0.1 X10*3/uL (0.0-0.4); Hematocrit 37.9 % (42.0-52.0); Imm Gran Abs Auto 0.03 X10*3/uL (0.00-0.03); Imm Gran Pct Auto 0.5 % (0.0-0.4); Lymphocytes Absolute Auto 1.2 X10*3/uL (1.2-4.9); Lymphocytes Percent Auto 18.9 % (20-40); Mean Corpuscular HGB Conc 34.3 g/dl (31.0-36.0); Mean Corpuscular Hemoglobin 31.1 pg (27.0-33.0); Mean Corpuscular Volume 90.7 fL (80.0-98.0); Mean Platelet Volume 10.2 fL (9.4-12.4); Monocytes Absolute Auto 0.7 X10*3/uL (0.1-1.2); Monocytes Percent Auto 10.1 % (2-11); Neutrophils Absolute Auto 4.4 x10*3/uL (2.0-8.3); Platelet Count 187 X10*3/uL (160-400); Red Blood Count 4.18 X10*6/uL (4.60-5.80); Red Cell Distribution Width 12.9 % (11.0-16.0); White Blood Count 6.4 X10*3/uL (4.8-10.8)
[2023-08-27 12:22] LABS: Anion Gap 12 (12-20); Blood Urea Nitrogen 19 mg/dL (9-16); Calcium 9.8 mg/dL (8.4-10.2); Carbon Dioxide 25 mmol/L (22-29); Chloride 107 mmol/L (96-108); Estimated Glomerular Filt Rate > 60; Glucose Random 215 mg/dL (60-115); Potassium 3.8 mmol/L (3.3-5.1); Sodium 140 mmol/L (135-145)
== END 2023-08-27 10:36 | disposition home or self-care (01) ==
LOC: HO.WFDLDS 10:35
PROVIDERS: Visit Provider Family Medicine
DX: D61.818 Other pancytopenia (principal)
CPT/HCPCS: 36415; 80048; 85025

== ENCOUNTER 2023-12-04 10:08 | Outpatient (AMB) | payer MEDICARE, SELFPAY ==
[2023-12-04 10:31] VITALS: BP 138/72; PULSE 69; O2SAT 96; BMI 28.8
--- NOTE | 2023-12-04 10:31 | MHC.PC.OV ---
Vital Signs 12/04/23 10:31 Height 5 ft 9 in Weight 195 lb 6 oz BMI 28.8 BP 138/72 Blood Pressure Location Lt brachial Position Sitting Pulse 69 Pulse Source Pulse Oximeter Pulse Oximetry (%) 96 Oxygen Delivery Method Room Air Intake Visit Reasons: f/u HLD and diabetes Intake Note: Patient is here to follow up on cholesterol and diabetes. Allergies metformin Allergy (Verified 12/04/23 10:33) Diarrhea Medication List - Last Reconciled 12/04/23 by Sebastian Rivera MD amlodipine 5 mg PO QAM 90 days atorvastatin 80 mg PO DAILY 90 days celecoxib (Celebrex) 200 mg PO DAILY diclofenac sodium 1% 2 grams topical QID 30 days fenofibrate micronized 200 mg PO QPM 90 days glipizide ER 10 mg PO QAM 90 days lisinopril 40 mg PO QAM 90 days metoprolol succinate ER 50 mg PO QAM 90 days sitagliptin phosphate 50 mg PO DAILY 30 days tamsulosin (Flomax) 0.4 mg PO DAILY 30 days Tobacco use date assessed: 12/04/23 Fall risk assessment: 2 + Falls in past year Last assessed Fall Risk: 12/04/23 Dental Screening Dental Screen Date: 12/04/23 Did you have a dental visit in the last 12 months?: Yes Did you have a dental problem in the last 6 months where you did not have access to dental care?: No Was dental information given to patient?: Patient has dentist HPI f/u HLD and diabetes HPI Details Patient?presents?to?follow-up?diabetes A1c?had?been?8.1%?and?I?started?him?on?sitagliptin. A1c?has?improved?to?7.7% He?notes?that?he?has?gained?weight?and?has?been?making?some?dietary?indiscretions. A?couple?of?visits?ago?he?had?had?bronchitis?and?had?been?rather?ill.??Had?had?a?mild?pancytopenia.??This?is?already?improving.??Still?has?mild?anemia.??Denies any?bleeding. Cough?has?resolved. 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 1. Little interest or pleasure in doing things: not at all 2. Feeling down, depressed, or hopeless: not at all 3. Trouble falling or staying asleep, or sleeping too much: not at all 4. Feeling tired or having little energy: not at all 5. Poor appetite or overeating: not at all 6. Feeling bad about yourself - or that you are a failure or have let yourself or your family down: not at all 7. Trouble concentrating on things, such as reading the newspaper or watching television: not at all 8. Moving or speaking so slowly that other people could have noticed. Or the opposite - being so fidgety or restless that you have been moving around a lot more than usual: not at all 9. Thoughts that you would be better off or of hurting yourself in some way: not at all Total score: 0 Depression Screening Interpretation: Negative Depression Screening Done: Yes Source: Developed by Drs. Seth Zhang, Vicky Wright, Johnie Crowley and colleagues, with an educational heike from [employer]. Thrive Questionnaire Date Thrive assessed: 12/04/23 I am a: Patient What is your living situation today?: I have a steady place to live Within the past 12 months, did the food you bought not last and you didn't have the money to get more?: Never true Within the past 12 months, did you worry whether your food would run out before you got money to buy more?: Never true Do you have trouble paying for medicines?: No Do you have trouble getting transportation to medical appointments?: No Do you have trouble paying your heating and electricity bill?: No Do you have trouble taking care of your child, family member or friend?: No Do you have trouble with day-to-day activities such as bathing, preparing meals, shopping, managing finances, etc.?: No Are you currently unemployed and looking for a job?: No Are you interested in more education?: No THRIVE Score: 0 AUDIT C Alcohol Use Questionnaire (AUDIT-C) 1. How often do you have a drink containing alcohol?: 4 or more times a week 2. How many drinks containing alcohol do you have on a typical day when you are drinking?: 1 or 2 3. How often do you have six or more drinks on one occasion?: Never Total Score: 4 ROCK-7 AMB Questionnaire ROCK-7 Date ROCK - 7 assessed: 12/04/23 Feeling nervous, anxious, or on edge: 0 = Not at all Not being able to stop or control worryin = Not at all Worrying too much about different things: 0 = Not at all Trouble relaxin = Not at all Being so restless that it is hard to sit still: 0 = Not at all Becoming easily annoyed or irritable: 0 = Not at all Feeling afraid as if something awful might happen: 0 = Not at all Total ROCK-7 score (0-4 normal; 5-9 mild; 10-14 moderate; 15-21 severe): 0 Source: Developed by Drs. Seth Zhang, Vicky Wright, Johnie rCowley and colleagues, with an educational heike from [employer]. Review of Systems Const Denies chills, Denies fatigue, Denies fever(s), Denies headache(s) and Denies weakness ENT Denies dizziness and Denies headache(s) Card Denies chest pain, Denies lightheadedness, Denies dyspnea and Denies other (Palpitations) Resp Denies cough, Denies dyspnea, Denies wheezing and Denies other ( shortness of breath) Musc Denies numbness and Denies tingling Neuro Denies dizziness, Denies headache(s), Denies numbness, Denies tingling, Denies paresthesias and Denies weakness Psych Denies anxiety and Denies depression Endo Denies fatigue Aller/Immun Denies wheezing Physical exam (Primary Care) Vital Signs: Last Vital Signs Pulse 69 12/04/23 10:31 BP 138/72 12/04/23 10:31 Pulse Ox 96 12/04/23 10:31 Oxygen Delivery Method Room Air 12/04/23 10:31 BMI result Body Mass Index 28.8 Tobacco/Smoking Status: Tobacco use Status Tobacco use date assessed 12/04/23 12/04/23 10:39 Patient Tobacco Use Status Never used Tobacco 12/04/23 10:31 e-Cigarette/Vaping Use Never Used 12/04/23 10:31 PHQ-9: PHQ-9 Score PHQ-9: Total score 0 12/04/23 11:03 Depression Screening Interpretation: Negative Thrive Assessment: Date of Thrive Assessment Date Thrive assessed 12/04/23 12/04/23 10:39 Const General: no acute distress and well developed Nutritional Appearance: well nourished Orientation/consciousness: patient oriented x3 HENMT Head: Yes normocephalic and Yes atraumatic Eyes General: appearance normal, both eyes and all related structures Pupils: Equal, round and reactive pupils present EOM: EOMs intact bilaterally Resp Effort & Inspection: normal respiratory effort Auscultation: clear to auscultation bilaterally Cardio Rate: regular rate Rhythm: regular rhythm Heart sounds: S1 normal heart sound present, S2 normal heart sound present, no gallops, no murmurs and no rubs Neuro General: patient oriented x3 and gait normal Cranial nerves: Yes Equal, round and reactive pupils present Psych Affect: normal affect Results AMB Hemoglobin A1c AMB Hemoglobin A1c 7.7 % Last Edit by Katelynn Holland CMA on 12/04/23 10:59 Results Reviewed Results Reviewed: Laboratory Last Values Hgb A1c (Clinic) 7.7 % (4.0-6.0) H 12/04/23 10:58 Assessment and Plan Assessment & Plan (1) Diabetes: Code(s): E11.9 - Type 2 diabetes mellitus without complications Plan: A1c?has?improved?but?is?still?high?at?7.7%.??Goal?is?less?than?7.0% Had?started?him?on?sitagliptin?and?continued?glipizide?at?his?last?visit. Increasing?sitagliptin?from?50?mg?daily?to?100?mg?daily. Work?on?improved?diabetic?diet?and?exercise.??Work?on?weight?loss. (2) Hypertension: Code(s): I10 - Essential (primary) hypertension Plan: Blood?pressure?is?controlled.??Goal?is?less?than?140/90 Continue?current?medications (3) Hyperlipidemia: Code(s): E78.5 - Hyperlipidemia, unspecified Plan: Due?to?recheck?lipids He?will?get?these?drawn?today (4) Mild anemia: Code(s): D64.9 - Anemia, unspecified Plan: Patient?has?mild?anemia.??Had?had?mild?pancytopenia?but?he?had?been?sick?with?bronchitis.??This?is?already?improving Rechecking?CBC Had?referred?him?to?Hematology-Oncology?but?he?missed?the?appointment.??May?DC?appointment?if?CBC?continues?to?improve Orders: Orders Lipid Panel Today E78.5 - Hyperlipidemia, unspecified, Z00.00 - Encounter for general adult medical examination without abnormal findings Comprehensive [place]. Panel Fast Today E78.5 - Hyperlipidemia, unspecified, Z00.00 - Encounter for general adult medical examination without abnormal findings AMB Hemoglobin A1c Today Z13.9 - Encounter for screening, unspecified Complete Blood Count Auto Diff Today D64.9 - Anemia, unspecified, Z00.00 - Encounter for general adult medical examination without abnormal findings Medications: Changed From sitagliptin phosphate 50 mg PO DAILY 30 days 30 tabs 3RF To sitagliptin phosphate 100 mg PO DAILY 30 days 30 tabs 3RF Coding Level of Care Code Est Pt Level 4 (94019) Diagnoses Diabetes E11.9 Hypertension I10 Hyperlipidemia E78.5 Mild anemia D64.9
== END 2023-12-04 11:27 | disposition home or self-care (01) ==
PROVIDERS: PCP Family Medicine; Visit Provider Family Medicine
DX: E11.69 Type 2 diabetes mellitus with other specified complication (principal); I10 Essential (primary) hypertension; E78.5 Hyperlipidemia, unspecified; D64.9 Anemia, unspecified
CPT/HCPCS: 83036; 99214

== ENCOUNTER 2023-12-04 11:24 | Outpatient (REF) | payer MEDICARE, SELFPAY ==
[2023-12-04 14:42] LABS: Appearance Urine Clear; Color Urine Yellow; Glucose Urine UA 500 mg/dL (Negative); Leukocyte Esterase Urine Negative (Negative); Nitrite Urine Negative (Negative); UMIC TRIGGER UA YES; Urine Blood Negative (Negative); Urine Ketones Negative (Negative); Urine Protein 30 (1+) mg/dL (Neg-Trace)
[2023-12-04 14:47] LABS: Bacteria Urine None Seen (None Seen); Hyaline Casts Urine 0-2 /LPF (0-2); RBC Urine 0-2 /HPF (0-2); Squamous Epithelial Cell Urine 0-2 /HPF (0-2); WBC Urine 0-5 /HPF (0-5)
[2023-12-04 14:48] LABS: MANUAL DIFF FLAG NO
[2023-12-04 14:56] LABS: Basophils Percent Auto 0.7 % (0-2); Eosinophils Absolute Auto 0.1 X10*3/uL (0.0-0.4); Eosinophils Percent Auto 2.5 % (0-4); Hematocrit 36.7 % (42.0-52.0); Hemoglobin 12.7 g/dl (14.0-18.0); Imm Gran Abs Auto 0.04 X10*3/uL (0.00-0.03); Imm Gran Pct Auto 0.7 % (0.0-0.4); Lymphocytes Absolute Auto 1.3 X10*3/uL (1.2-4.9); Lymphocytes Percent Auto 22.5 % (20-40); Mean Corpuscular HGB Conc 34.6 g/dl (31.0-36.0); Mean Corpuscular Volume 92.4 fL (80.0-98.0); Mean Platelet Volume 10.6 fL (9.4-12.4); Monocytes Absolute Auto 0.5 X10*3/uL (0.1-1.2); Monocytes Percent Auto 9.3 % (2-11); Neutrophils Absolute Auto 3.6 x10*3/uL (2.0-8.3); Neutrophils Percent Auto 64.3 % (45-73); Platelet Count 149 X10*3/uL (160-400); Red Blood Count 3.97 X10*6/uL (4.60-5.80); Red Cell Distribution Width 12.5 % (11.0-16.0); White Blood Count 5.6 X10*3/uL (4.8-10.8)
[2023-12-04 15:35] LABS: Alanine Aminotransferase 31 U/L (0-40); Albumin Level 4.3 g/dL (3.5-5.0); Alkaline Phosphatase 39 U/L (39-117); Anion Gap 15 (12-20); Aspartate Amino Transferase 32 U/L (5-37); Bilirubin Total 0.5 mg/dL (0.0-1.0); Blood Urea Nitrogen 18 mg/dL (9-16); Calcium 9.9 mg/dL (8.4-10.2); Carbon Dioxide 24 mmol/L (22-29); Chloride 107 mmol/L (96-108); Cholesterol 193 mg/dL (<200); Estimated Glomerular Filt Rate > 60; Glucose Fasting 167 mg/dL (60-99); HDL Cholesterol 79 mg/dL (>40); LDL Cholesterol Calculated 95 mg/dL (<100); Potassium 3.6 mmol/L (3.3-5.1); Sodium 142 mmol/L (135-145); Total Protein 7.6 g/dL (6.5-8.0); Triglycerides 96 mg/dL (<150)
== END 2023-12-04 11:25 | disposition home or self-care (01) ==
LOC: HO.WFDLDS 11:24
PROVIDERS: Visit Provider Family Medicine
DX: Z00.00 Encounter for general adult medical examination without abnormal findings (principal); D64.9 Anemia, unspecified; E78.5 Hyperlipidemia, unspecified; Z13.9 Encounter for screening, unspecified
CPT/HCPCS: 36415; 80053; 80061; 81001; 85025

== ENCOUNTER 2024-05-24 10:29 | Outpatient (AMB) | payer MEDICARE, SELFPAY ==
--- NOTE | 2024-05-24 10:42 | MHC.PC.OV ---
Vital Signs 05/24/24 10:48 05/24/24 10:52 Height 5 ft 9 in Weight 200 lb 6 oz BMI 29.6 BP 153/67 H 139/65 Blood Pressure Location Lt brachial Lt brachial Position Sitting Sitting Respiration 14 Pulse 71 Pulse Source Pulse Oximeter Temp 97.9 F Temp Source Temporal Artery Scan Pulse Oximetry (%) 96 Oxygen Delivery Method Room Air Intake Visit Reasons: f/u diabetes Intake Note: F/U DM Allergies metformin Allergy (Verified 05/24/24 10:47) Diarrhea Tobacco use date assessed: 12/04/23 Dental Screening Dental Screen Date: 12/04/23 HPI f/u diabetes HPI Details 83 y/o male presents to f/u diabetes. Last A1c 12/04/23 7.7% which had been improving. Had increased his sitagliptin and had encouraged lifestyle changes. A1c today 05/24/24 is 7.4%. Labs drawn 12/04/23. Reviewed labs with pt. Ongoing mild anemia. Triglycerides 96. TC 193. LDL 95. HDL 79. He is on artovastatin 80mg daily. Blood pressure today 139/65, 71p. He is on lisinopril 40mg, metoprolol 50mg. Has complaints of urinary frequency/urgency. HPI Comments History of Present Illness Details Documentation assistance for Sebastian Rivera MD, was provided by Garrett Velazquez, Surface Room Shop Optician on 05/22/2024 at 10:55 AM LOPEZ. I, Dr. Rivera, have read, observed, and verified documentation. 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 1. Little interest or pleasure in doing things: not at all 2. Feeling down, depressed, or hopeless: not at all 3. Trouble falling or staying asleep, or sleeping too much: not at all 4. Feeling tired or having little energy: not at all 5. Poor appetite or overeating: not at all 6. Feeling bad about yourself - or that you are a failure or have let yourself or your family down: not at all 8. Moving or speaking so slowly that other people could have noticed. Or the opposite - being so fidgety or restless that you have been moving around a lot more than usual: not at all 9. Thoughts that you would be better off or of hurting yourself in some way: not at all Source: Developed by Drs. Seth Zhang, Vicky Wright, Johnie Crowley and colleagues, with an educational heike from [employer]. Thrive Questionnaire Date Thrive assessed: 12/04/23 I am a: Patient What is your living situation today?: I have a steady place to live Within the past 12 months, did the food you bought not last and you didn't have the money to get more?: Never true Within the past 12 months, did you worry whether your food would run out before you got money to buy more?: Never true Do you have trouble paying for medicines?: No Do you have trouble getting transportation to medical appointments?: No Do you have trouble paying your heating and electricity bill?: No Do you have trouble taking care of your child, family member or friend?: No Do you have trouble with day-to-day activities such as bathing, preparing meals, shopping, managing finances, etc.?: No Are you currently unemployed and looking for a job?: No Are you interested in more education?: No Please select the resources that you would like help with: None Currently or been in a relationship where the following occur: No concerns reported THRIVE Score: 0 AUDIT C Alcohol Use Questionnaire (AUDIT-C) 1. How often do you have a drink containing alcohol?: 2-3 times a week 2. How many drinks containing alcohol do you have on a typical day when you are drinking?: 1 or 2 3. How often do you have six or more drinks on one occasion?: Never Total Score: 3 ROCK-7 AMB Questionnaire ROCK-7 Date ROCK - 7 assessed: 12/04/23 Feeling nervous, anxious, or on edge: 0 = Not at all Not being able to stop or control worryin = Not at all Worrying too much about different things: 0 = Not at all Trouble relaxin = Not at all Being so restless that it is hard to sit still: 0 = Not at all Becoming easily annoyed or irritable: 0 = Not at all Feeling afraid as if something awful might happen: 0 = Not at all Total ROCK-7 score (0-4 normal; 5-9 mild; 10-14 moderate; 15-21 severe): 0 Source: Developed by Drs. Seth Zhang, Vicky Wright, Johnie Crowley and colleagues, with an educational heike from [employer]. Review of Systems Const Denies chills, Denies fatigue, Denies fever(s), Denies headache(s) and Denies weakness ENT Denies dizziness and Denies headache(s) Card Denies dyspnea Resp Denies cough, Denies dyspnea, Denies wheezing and Denies other (shortness of breath) Musc Denies numbness and Denies tingling Neuro Denies dizziness, Denies headache(s), Denies numbness, Denies tingling and Denies weakness Psych Denies anxiety and Denies depression Endo Denies fatigue Aller/Immun Denies wheezing Physical exam (Primary Care) Vital Signs: Last Vital Signs Temp 97.9 F 05/24/24 10:48 Pulse 71 05/24/24 10:48 Resp 14 05/24/24 10:48 BP 139/65 05/24/24 10:52 Pulse Ox 96 05/24/24 10:48 Oxygen Delivery Method Room Air 05/24/24 10:48 BMI result Body Mass Index 29.6 Tobacco/Smoking Status: Tobacco use Status Tobacco use date assessed 12/04/23 05/24/24 10:42 Patient Tobacco Use Status Never used Tobacco 05/24/24 10:42 e-Cigarette/Vaping Use Never Used 05/24/24 10:42 Thrive Assessment: Date of Thrive Assessment Date Thrive assessed 12/04/23 05/24/24 10:42 Currently or been in a relationship where the following occur: No concerns reported Const General: well developed; No acute distress Nutritional Appearance: well nourished Orientation/consciousness: patient oriented x3 [facility] Head: Yes normocephalic and Yes atraumatic Eyes General: appearance normal, both eyes and all related structures Pupils: Equal, round and reactive pupils present EOM: EOMs intact bilaterally Resp Effort & Inspection: normal respiratory effort Auscultation: clear to auscultation bilaterally Cardio Rate: regular rate Rhythm: regular rhythm Heart sounds: S1 normal heart sound present, S2 normal heart sound present, no gallops, no murmurs and no rubs Neuro General: patient oriented x3 and gait normal Cranial nerves: Yes Equal, round and reactive pupils present Psych Affect: normal affect Coding Level of Care Code Est Pt Level 4 (26620) Diagnoses Diabetes E11.9 Hypertension I10 Mild anemia D64.9 Hyperlipidemia E78.5 Urinary frequency R35.0 Assessment & Plan Assessment & Plan (1) Diabetes: Code(s): E11.9 - Type 2 diabetes mellitus without complications Category: Medical Plan: A1c?continues?to?improve?but?is?still?above?goal?of?less?than?7.0% He?notes?that?he?has?gained?weight?and?has?not?been?working?on?his?diet?as?much?as?he?thinks?he?could?be No?medication?changes?today. Continue?diabetic?diet?and?work?on?a?diet?lower?in?sugars?and?starches (2) Hypertension: Code(s): I10 - Essential (primary) hypertension Category: Medical Plan: Blood?pressure?is?controlled.??Goal?is?less?than?140/90 Continue?current?medication (3) Mild anemia: Code(s): D64.9 - Anemia, unspecified Category: Medical Plan: Ongoing,?stable?mild?anemia. Prior?pancytopenia?and?patient?has?eased?up?on?his?alcohol?use. Encouraged?further?weaning?of?alcohol?use Recheck?CBC (4) Hyperlipidemia: Code(s): E78.5 - Hyperlipidemia, unspecified Category: Medical Plan: Lipids?are?well?controlled?on?atorvastatin?and?fenofibrate Continue?current?medications (5) Urinary frequency: Code(s): R35.0 - Frequency of micturition Category: Medical Plan: Patient?has?complaints?of?urinary?frequency?and?urgency. Had?tried?tamsulosin?and?he?does?not?think?this?is?helping. Also?notes?rather?dry?mouth He?will?trial?stopping?tamsulosin. Referring?him?to?Urology Orders: Orders Comprehensive Met. Panel Today D64.9 - Anemia, unspecified Complete Blood Count Auto Diff Today D64.9 - Anemia, unspecified Referrals Urology Referral R35.0 - Frequency of micturition
[2024-05-24 10:48] VITALS: BP 153/67; PULSE 71; RESP 14; TEMP 36.6; O2SAT 96; BMI 29.6
[2024-05-24 10:52] VITALS: BP 139/65
== END 2024-05-24 11:23 | disposition home or self-care (01) ==
PROVIDERS: PCP Family Medicine; Visit Provider Family Medicine
DX: E11.9 Type 2 diabetes mellitus without complications (principal); I10 Essential (primary) hypertension; D64.9 Anemia, unspecified; E78.5 Hyperlipidemia, unspecified; R35.0 Frequency of micturition

== ENCOUNTER → 2024-05-24 10:29 | Outpatient (BNVA) | payer MEDICARE, SELFPAY | PROVIDERS: PCP Family Medicine; Visit Provider Family Medicine | DX: E11.9 Type 2 diabetes mellitus without complications (principal); I10 Essential (primary) hypertension; D64.9 Anemia, unspecified; E78.5 Hyperlipidemia, unspecified; R35.0 Frequency of micturition | CPT/HCPCS: 99212 ==

== ENCOUNTER 2024-07-13 09:11 | Outpatient (AMB) | payer MEDICARE, SELFPAY ==
--- NOTE | 2024-07-13 09:18 | A.OFFVIS_ITS ---
Intake Visit Reasons: urinary urgency/frequency Intake Note: New Patient presents for initial visit for urinary urgency and frequency Urology Medications: tamsulosin Blood Thinner:none PVR: Boiler Room Helper Required: No Accompanied by: Self / Same As Patient Allergies metformin Allergy (Verified 07/13/24 09:45) Diarrhea Medication List - Last Reviewed 07/13/24 by Arlen Bermudez amlodipine 5 mg PO QAM 90 days aspirin 81 mg PO DAILY atorvastatin 80 mg PO DAILY 90 days fenofibrate micronized 200 mg PO QPM 90 days glipizide ER 10 mg PO QAM 90 days lisinopril 40 mg PO QAM 90 days metoprolol succinate ER 50 mg PO QAM 90 days sitagliptin phosphate 100 mg PO DAILY 30 days tamsulosin (Flomax) 0.4 mg PO DAILY 30 days HPI Comments Details: Steven is a very pleasant 83-year-old male patient of Dr. Rivera. He has a past medical history of type 2 diabetes, dysfunction of left rotator cuff, hyperlipidemia, and hypertension. He presents to the office today as a new patient for ongoing lower urinary tract symptoms. In discussion with the patient today he reports having followed up with his PCP in discussing ongoing lower urinary tract symptoms at which time he was started on Flomax and recommendation was made for urology referral for further assessment evaluation. When asked he reports no improvement in lower urinary tract symptoms with Flomax. He reports he continues with episodes of urinary urgency and frequency throughout the day. He otherwise denies incontinence, nocturia, hematuria, dysuria, foul smelling urine, changes to urinary stream, flank pain, fever, and or chills. In office urinalysis results reviewed with the patient today. 3+ glucosuria. We discussed at length affects of diabetes on the bladder as well as lower urinary tract symptoms. In review of patient's chart it appears PSA 11/17 2.0 A1c 05/19 7.4 We discussed further workup to include retroperitoneal ultrasound for further assessment evaluation. ROSELINE offered however deferred. We discussed further treatment options of lower urinary tract symptoms patient was experiencing. He otherwise offers no other issues or concerns at this time. 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 Current occupational exposures/hazards: No Cognitive needs: No Hearing needs: No Vision needs: Yes Review of Systems Const All systems reviewed & are unremarkable except as noted in HPI and below Physical Exam Const General: cooperative, healthy appearing, comfortable, no acute distress, well developed, alert and awake Orientation/consciousness: patient oriented x3 Limitations: no limitations HEENT Head: Yes normal to inspection, Yes normocephalic and Yes atraumatic Ears: hearing grossly normal bilaterally Eyes General: appearance normal, both eyes and all related structures Neck Neck: Yes normal visual inspection and Yes trachea midline Chest Chest palpation & inspection: normal inspection of the chest Resp Effort & Inspection: normal respiratory effort and able to speak in complete sentences Cardio Rate: regular rate GI Inspection: Yes normal to inspection General: Yes no CVA tenderness Back/Spine/Pelvis Back: no CVA tenderness Skin General skin exam: no rashes or lesions noted Neuro General: patient oriented x3 Extrem General: Yes normal to inspection Psych Appearance: grossly normal and well kempt Mental Status: mental status grossly normal Speech and movement: Normal speech and movement present and Clear speech present Affect: normal affect Attitude: cooperative Thought process: Normal thought process present Thought content: Normal thought content present Insight: Fair insight present (Psych) Judgement: Fair judgement present (Psych) Office Procedures Post Void Residual Post Residual Void Post Void Residual (PVR): 10 [id number] Void Residual by ultrasound Results AMB Urinalysis, Automated UA Leukoctes 0 Stefany/uL Last Edit by Arlen Bermudez on 07/13/24 09:59 UA Nitrite Last Edit by Arlen Bermudez on 07/13/24 09:59 UA Urobilinogen 0.2 mg/dL Last Edit by Arlen Bermudez on 07/13/24 09:59 UA Protein 30 mg/dL Last Edit by Arlen Bermudez on 07/13/24 09:59 UA pH 6.0 Last Edit by Arlen Bermudez on 07/13/24 09:59 UA Blood 0 Hi/uL Last Edit by Arlen Bermudez on 07/13/24 09:59 UA Specific [place] 1.025 Last Edit by Arlen Bermudez on 07/13/24 09:59 UA Ketone Last Edit by Arlen Bermudez on 07/13/24 09:59 UA Bilirubin 0 mg/dL Last Edit by Arlen Bermudez on 07/13/24 09:59 UA Glucose 1000 mg/dL Last Edit by Arlen Bermudez on 07/13/24 09:59 Assessment & Plan Assessment & Plan (1) Urinary frequency: Code(s): R35.0 - Frequency of micturition Category: Medical (2) Urinary urgency: Code(s): R39.15 - Urgency of urination Category: Medical Plan In office urinalysis results reviewed with the patient today; as noted above. We discussed at length potential causes for lower urinary tract symptoms patient is experiencing. Will obtain retroperitoneal ultrasound for further assessment evaluation. Will obtain PSA for further assessment evaluation. We discussed at length importance of managing diabetes for improvement in lower urinary tract symptoms as well as overall health and well-being. Stop Flomax. Start VESIcare as discussed and prescribed. Discussed bladder triggers/irritants. Follow-up in 1-3 months with imaging, labs, and PVR; or sooner with any issues, concerns, and or questions. Orders: Orders AMB Post Void Residual by ultrasound Today R35.0 - Frequency of micturition US retroperitoneal comp Today R35.0 - Frequency of micturition, R39.15 - Urgency of urination AMB Urinalysis Automated Today Z13.9 - Encounter for screening, unspecified Prostate Specific Antigen Today R35.0 - Frequency of micturition, R39.15 - Urgency of urination Medications: New solifenacin (Vesicare) 5 mg PO DAILY 30 days 30 tabs 3RF Discontinued tamsulosin (Flomax) Discontinued Reason: Duplicate 0.4 mg PO DAILY 30 days 30 caps 1RF Patient Instructions: The patient had an opportunity to ask questions regarding the treatment plan. All questions were answered. Physical exam, labs, and imaging were discussed and reviewed in detail. As well as risks, benefits, and discussion of treatment choices. No major barriers to understanding were identified. The patient expressed understanding and agreement with the above treatment plan. The patient was made aware they should contact our office by phone for worsening of their current condition, the appearance of new symptoms, or with any questions or concerns. Compliance is encouraged with any medications and follow up testing that is ordered. It is a privilege to be allowed the opportunity to participate in? your urological care.? Again, if you have any questions or concerns If you have any questions or concerns please do not hesitate to contact me. The office is [phone]. This note is constructed using voice recognition software. While every effort has been made to ensure accuracy almond roaster errors may have been included. Yours sincerely, LIZZY Edmond-KARLA Coding Level of Care Code New Pt Level 4 (78350) Diagnoses Urinary frequency R35.0 Urinary urgency R39.15 CPT Codes Post Residual Void - PVR CPT Code: 37138-Ebzw Void Residual by ultrasound ([id number])
== END 2024-07-13 09:47 | disposition home or self-care (01) ==
PROVIDERS: PCP Family Medicine; Visit Provider Nurse Practitioner Family
DX: R35.0 Frequency of micturition (principal); R39.15 Urgency of urination; Z13.9 Encounter for screening, unspecified
CPT/HCPCS: 99204

== ENCOUNTER → 2024-07-13 09:11 | Outpatient (BNVA) | payer MEDICARE, SELFPAY | PROVIDERS: PCP Family Medicine; Visit Provider Nurse Practitioner Family | DX: R35.0 Frequency of micturition (principal); R39.15 Urgency of urination | CPT/HCPCS: 51798; 81003; 99202 ==

== ENCOUNTER 2024-11-15 15:19 | Outpatient (REF) | payer OTHER, SELFPAY ==
--- OUTSIDE RECORDS SUMMARY | 2024-11-15 15:22 | XMS_ITS | Clinical Summary ---
Author Organization [facility] Address [address] [place] [address] Care Team Providers Care Relay Dispatcher Name Role Phone Luzma Vega MD Primary Care Provider [phone] Surgical History Surgery Date Site/Laterality Comments BRAIN SURGERY PROCEDURE:BRAIN SURGERY;COMMENT:plate in forehead SHOULDER SURGERY Right PROCEDURE:SHOULDER SURGERY;COMMENT:x2 KNEE SURGERY PROCEDURE:KNEE SURGERY EYE SURGERY PROCEDURE:EYE SURGERY CERVICAL FUSION 11/18/2017 Right Anterior PROCEDURE:CERVICAL FUSION;COMMENT:Procedure: C4-C5 ANTERIOR CERVICAL DISC FUSION; Surgeon: Kwasi Vivar MD; Location: [facility] MAIN OPERATING ROOM; Service: Spine; Laterality: Right Anterior; TOTAL HIP ARTHROPLASTY 09/26/2016 Right PROCEDURE:TOTAL HIP ARTHROPLASTY;COMMENT:Procedure: REPLACEMENT TOTAL HIP; Surgeon: Seth Whittington MD; Location: [facility] ([facility]); Service: Orthopedics; Laterality: Right; Medical History Medical History Date Comments Osteoarthritis DX:Osteoarthriti s Hyperlipidemia DX:Hyperlipidemi a Hypertension DX:Hypertension Eczema DX:Eczema;COMMEN T:face and chest currently not active Peripheral neuropathy DX:Periphe ral neuropathy;COMMENT:right side hip down leg numbness Diabetes mellitus, type II ( CMS/HCC V24, CMS/HCC V28) DX:Diabetes mellitus, type I I ([facility]) GERD (gastroesophageal reflux disease) DX:GERD (gastroesophageal reflux disease) CKD (chronic kidney disease), stage I DX:CKD (chronic kidney disease), stage I Microalbuminuria DX:Microalbumin uria Social History Tobacco Use Types Packs/Day Years Used Date Smoking Tobacco: Some Days Cigarettes Smokeless Tobacco: Never Alcohol Use Standard Drinks/Week Comments Yes 24 (1 standard drink = 0.6 oz pu re alcohol) Sex and Gender Information Value Date Recorded Sex Assigned at Not on file Legal Sex Male 6:45 PM EST Gender Identity Not on file Sexual Orientation Not on file Obstetrics History Plan of Treatment Health Maintenance Due Date Last Done Comments DTaP,Tdap,and Td Vaccines (1 - Tdap) 1960 Pneumococcal Vaccine: 50+ Ye ars (1 of 1 - PCV) 1991 Zoster Vaccines (1 of 2) 1991 RSV Immunization Adult Patie nts (1 - 1-dose 75+ series) 2016 COVID-19 Vaccine (1 - 2023-2 5 season) 2024 Influenza Vaccine (Season Ended) 2025 HIB Vaccines Aged Out No longer eligi ble based on patient's age to complete this topic HPV Vaccines Aged Out No longer eligi ble based on patient's age to complete this topic Hepatitis A Vaccines Aged Out No long er eligible based on patient's age to complete this topic Hepatitis B Vaccines Aged Out No long er eligible based on patient's age to complete this topic IPV Vaccines Aged Out No longer eligi ble based on patient's age to complete this topic MMR Vaccines Aged Out No longer eligi ble based on patient's age to complete this topic Meningococcal ACWY Vaccine Aged Out N o longer eligible based on patient's age to complete this topic Meningococcal B Vaccine Aged Out No l onger eligible based on patient's age to complete this topic RSV Immunization Patients Un leighann 20 months Aged Out No longer eligible b ased on patient's age to complete this topic Varicella Vaccines Aged Out No longer eligible based on patient's age to complete this topic Care Teams Relay Dispatcher Relationship Specialty Start Date End Date Luzma Vega MD [address] [place] [address], [place] [address] PCP - General Family Medicine 09/25/17
--- OUTSIDE RECORDS SUMMARY | 2024-11-15 15:22 | XMS_ITS | Clinical Summary ---
Author Organization [facility] Address [address] [place] [address] Care Team Providers Care Heavy Equipment Operator/Paver Name Role Phone Luzma Vega MD Primary Care Provider Allergies Active Allergy Reactions Criticality Noted Date Comments Metformin Diarrhea Low 09/23/2016 Other Other (See Comments) Low 09/23/2016 CATS, DOGS, GRASS, RAGWEED AND TREES Medications Medication Sig Dispensed Refills Start Date End Date Status amLODIPine (NORVASC) tablet 5 mg Take 5 mg by mouth daily. 0 Active atorvastatin (LIPITOR) tablet 80 mg Take 80 mg by mouth daily. 0 Active bisoprolol-hydroch lorothiazide (ZIAC) 2.5-6.25 MG per tablet Take 1 tablet by mouth daily. 0 Active glipiZIDE (GLUCOTROL XL) ER 24 hr tablet 10 mg Take 10 mg by mouth daily. 0 Active lisinopril (PRINIVIL,ZESTRIL) tablet 40 mg Take 40 mg by mouth daily. 0 Active Multiple Vitamin (MULTI VITAMIN DAILY PO) Take 1 tablet by mouth daily. 0 Active UNABLE TO FIND 1 tablet daily. Med Name: healthy cholesterol formula 0 Active acetaminophen (TYLENOL EXTRA STRENGTH) 500 MG tablet Take 2 tablets (1,000 mg total) by mouth every 8 (eight) hours as needed for pain. 30 tablet 0 09/26/2016 Active vitamin C (VITAMIN C) 500 MG tablet Take 1 tablet (500 mg total) by mouth 2 (two) times a day. 120 tablet 0 09/26/2016 Active cholecalciferol (VITAMIN D3) 1000 units tablet Take 1,000 Units by mouth daily. 0 Active ferrous sulfate 325 (65 FE) MG tablet Take 325 mg by mouth every morning with breakfast. 0 Active senna (SENOKOT) 8.6 MG tablet Take 1 tablet by mouth 2 (two) times a day. 20 tablet 0 11/19/2017 Active Additional Information Patient not taking.Reason: Other, Reported on 06/30/2018 methocarbamol (ROBAXIN) 750 MG tablet Take 1 tablet (750 mg total) by mouth every 6 (six) hours as needed (for muscle spasms). 45 tablet 0 11/19/2017 Active Additional Information Patient not taking.Reason: Other, Reported on 06/30/2018 aspirin 81 MG EC tablet Take 1 tablet (81 mg total) by mouth 2 (two) times a day after meals. 1 tablet 0 11/26/2017 Active alclomethasone (ACLOVATE) 0.05 % cream 0 06/17/2018 Active oxyCODONE (ROXICODONE) 5 MG immediate release tablet Take 1 tablet (5 mg total) by mouth every 8 (eight) hours as needed for pain. 30 tablet 0 07/02/2018 Active Active Problems Problem Noted Date Diagnosed Date S/P cervical spinal fusion 06/30/2018 Neck pain 06/30/2018 Social History Tobacco Use Types Packs/Day Years Used Date Smoking Tobacco: Some Days Cigarettes 1 30 Pipe Cigars Smokeless Tobacco: Never Alcohol Use Standard Drinks/Week Comments Yes 24 (1 standard drink = 0.6 oz pu re alcohol) wine beer, liquor frerquently Sex and Gender Information Value Date Recorded Sex Assigned at Not on file Gender Identity Not on file Sexual Orientation Not on file Last Filed Vital Signs Vital Sign Reading Time Taken Comments Blood Pressure 150/78 06/30/2018 11:20 AM EST Pulse 82 11/19/2017 8:05 AM EDT Temperature 37.6 ??C (99.6 ??F) 11/19/2017 8:05 AM ED T Respiratory Rate 18 11/19/2017 8:05 AM EDT Oxygen Saturation 96% 11/19/2017 8:05 AM EDT Inhaled Oxygen Concentration - - Weight 88 kg (194 lb) 06/30/2018 11:20 AM EST Height 175.3 cm (5' 9 ) 06/30/2018 11:20 AM EST Body Mass Index 28.65 06/30/2018 11:20 AM EST Plan of Treatment Health Maintenance Due Date Last Done Comments Lung Cancer Screening (Low D ose CT) 1941 COVID-19 Vaccine (#1) 02/02/1942 Pneumococcal Vaccine (1 of 2 - PCV) 1947 Depression Screening 1953 Preventative Health Evaluation 1959 DTap / Tdap / Td (1 - Tdap) 1960 Shingrix-Zoster Vaccine (1 of 2) 1991 Fall Risk Assessment 2006 RSV Adult > 60+ Yrs or Pregn ant (1 - 1-dose 75+ series) 2016 Influenza Vaccine (#1) 2024 Hepatitis B Vaccines Aged Out No long er eligible based on patient's age to complete this topic RSV Ped < 20 months Aged Out No longe r eligible based on patient's age to complete this topic Medical Devices Implanted Type Area Power Plant Installer Device Identifier Shelf Expiration Date Model / Serial / Lot Sponge Surgiflo 8ml Hemostatic Matrix Absorbable Latex Free - [id number] - [id number] Implanted:Qty: 1 on 11/18/2017 by Kwasi Vivar MD at [facility] Hemostatic Agent Anterior: Spine Cervical [employer] 04/26/2019 [id number] / / [id number] Shell R3 Standard 54mm 3 Hole Porous Acetabular Hip - 729117 - [id number] Implanted:Qty: 1 on 09/26/2016 by Seth Whittington MD at [facility] Right: Hip [employer] 06/04/2026 [id number] / / [id number] Liner R3 20d 54mm 36mm Xlpe Acetabular Hip - 860793 - [id number] Implanted:Qty: 1 on 09/26/2016 by Seth Whittington MD at [facility] Right: Hip [employer] 07/23/2026 [id number] / / [id number] Stem Polarstem 2 Standard Cementless Titanium Levin Femoral Hip - 911559 - [id number] Implanted:Qty: 1 on 09/26/2016 by Seth Whittington MD at [facility] Right: Hip [employer] 05/27/2023 [id number] / / [id number] Head [place] +4mm 12\14 36mm Tapered Cocr Femoral Hip - 360193 - [id number] Implanted:Qty: 1 on 09/26/2016 by Seth Whittington MD at [facility] and Med Right: Hip [employer] 05/25/2026 [id number] / / [id number] System Hip Por Fem Cocr Head Pressfit R3 Aubrey Xlpe Liner - 389482 - [id number] Implanted:Qty: 1 on 09/26/2016 by Seth Whittington MD at [facility] and Med Right: Hip [employer] [id number] / / Graft Cornerstone Asr Lordotic [id number] Block Cancellous - 828428 - [id number] Implanted:Qty: 1 on 11/18/2017 by Kwasi Vivar MD at [facility] and Med Anterior: Spine Cervical [employer] 05/13/2020 [id number] / [id number] / [id number] Plate 14mm Xtend Bone Ant Crv - 817996 - [id number] Implanted:Qty: 1 on 11/18/2017 by Kwasi Vivar MD at [facility] and Med Anterior: Spine Cervical [employer] 161.114 / / Screw Bone 4.2mm Selftap - 817676 - [id number] Implanted:Qty: 4 on 11/18/2017 by Kwasi Vivar MD at [facility] and Med Anterior: Spine Cervical [employer] 161.316 / / Advance Directives For more information, please contact: [phone] Latest Code Status on File Code Status Date Activated Date Inactivated Comments Full Code 11/18/2017 2:15 PM 11/19/2017 3:38 PM This code status was ascertained in the following way: discussion with healthcare nutrition representative . Code Status History Code Status Date Activated Date Inactivated Comments Full Code 09/26/2016 2:57 PM 09/27/2016 8:58 PM This co de status was ascertained in the following way: per chart. Full Code 09/26/2016 10:27 AM 09/26/2016 2:57 PM This c ode status was ascertained in the following way: per chart Care Teams Heavy Equipment Operator/Paver Relationship Specialty Start Date End Date Luzma Vega MD [address] [place] [address] [place] [address] PCP - General Family Medicine 09/25/17
[2024-11-15 16:35] LABS: MANUAL DIFF FLAG NO
[2024-11-15 16:38] LABS: Basophils Absolute Auto 0.1 X10*3/uL (0.0-0.2); Basophils Percent Auto 0.8 % (0-2); Eosinophils Absolute Auto 0.1 X10*3/uL (0.0-0.4); Eosinophils Percent Auto 1.5 % (0-4); Hematocrit 36.2 % (42.0-52.0); Hemoglobin 12.6 g/dl (14.0-18.0); Imm Gran Abs Auto 0.04 X10*3/uL (0.00-0.03); Imm Gran Pct Auto 0.6 % (0.0-0.4); Lymphocytes Absolute Auto 1.5 X10*3/uL (1.2-4.9); Lymphocytes Percent Auto 22.6 % (20-40); Mean Corpuscular HGB Conc 34.8 g/dl (31.0-36.0); Mean Corpuscular Hemoglobin 31.7 pg (27.0-33.0); Mean Corpuscular Volume 91.2 fL (80.0-98.0); Mean Platelet Volume 10.3 fL (9.4-12.4); Monocytes Absolute Auto 0.7 X10*3/uL (0.1-1.2); Monocytes Percent Auto 9.9 % (2-11); Neutrophils Absolute Auto 4.3 x10*3/uL (2.0-8.3); Neutrophils Percent Auto 64.6 % (45-73); Platelet Count 148 X10*3/uL (160-400); Red Blood Count 3.97 X10*6/uL (4.60-5.80); Red Cell Distribution Width 12.8 % (11.0-16.0); White Blood Count 6.6 X10*3/uL (4.8-10.8)
[2024-11-15 17:33] LABS: Alanine Aminotransferase 33 U/L (0-40); Albumin Level 4.4 g/dL (3.5-5.0); Alkaline Phosphatase 54 U/L (39-117); Anion Gap 16 (12-20); Aspartate Amino Transferase 34 U/L (5-37); Bilirubin Total 0.5 mg/dL (0.0-1.0); Blood Urea Nitrogen 17 mg/dL (9-16); Calcium 9.2 mg/dL (8.4-10.2); Carbon Dioxide 22 mmol/L (22-29); Chloride 106 mmol/L (96-108); Estimated Glomerular Filt Rate > 60; Glucose Random 207 mg/dL (60-115); Potassium 3.4 mmol/L (3.3-5.1); Sodium 141 mmol/L (135-145); Total Protein 7.1 g/dL (6.5-8.0)
[2024-11-15 17:53] LABS: Prostate Specific Antigen 1.85 ng/mL (<0.05-4.0)
== END 2024-11-15 15:20 | disposition home or self-care (01) ==
LOC: HO.WFDLDS 15:19
PROVIDERS: Referring Provider Nurse Practitioner Family; Visit Provider Family Medicine
DX: D64.9 Anemia, unspecified (principal); R39.15 Urgency of urination; R35.0 Frequency of micturition; Z12.5 Encounter for screening for malignant neoplasm of prostate
CPT/HCPCS: 36415; 80053; 84153; 85025

== ENCOUNTER 2024-12-09 14:24 | Outpatient (AMB) | payer OTHER, SELFPAY ==
--- OUTSIDE RECORDS SUMMARY | 2024-12-09 15:01 | XMS_ITS | Clinical Summary ---
[facility] Organization [facility] Address [address] [place] [id number] Care Team Providers Care Lead Slot Technician Name Role Phone Luzma Vega MD Primary Care Provider [phone] Surgical History Surgery Date Site/Laterality Comments BRAIN SURGERY PROCEDURE:BRAIN SURGERY;COMMENT:plate in forehead SHOULDER SURGERY Right PROCEDURE:SHOULDER SURGERY;COMMENT:x2 KNEE SURGERY PROCEDURE:KNEE SURGERY EYE SURGERY PROCEDURE:EYE SURGERY CERVICAL FUSION 11/18/2017 Right Anterior PROCEDURE:CERVICAL FUSION;COMMENT:Procedure: C4-C5 ANTERIOR CERVICAL DISC FUSION; Surgeon: Kwasi Vivar MD; Location: [facility]; Service: Spine; Laterality: Right Anterior; TOTAL HIP ARTHROPLASTY 09/26/2016 Right PROCEDURE:TOTAL HIP ARTHROPLASTY;COMMENT:Procedure: REPLACEMENT TOTAL HIP; Surgeon: Seth Whittington MD; Location: [facility]); Service: Orthopedics; Laterality: Right; Medical History Medical History Date Comments Osteoarthritis DX:Osteoarthriti s Hyperlipidemia DX:Hyperlipidemi a Hypertension DX:Hypertension Eczema DX:Eczema;COMMEN T:face and chest currently not active Peripheral neuropathy DX:Periphe ral neuropathy;COMMENT:right side hip down leg numbness Diabetes mellitus, type II ( CMS/HCC V24, CMS/HCC V28) DX:Diabetes mellitus, type I I ([facility]) GERD (gastroesophageal reflux disease) DX:GERD (gastroesophageal reflux [...] age to complete this topic Care Teams Lead Slot Technician Relationship Specialty Start Date End Date Luzma Vega MD [address] [place] [address], [place] [phone] PCP - General Family Medicine 09/25/17
--- OUTSIDE RECORDS SUMMARY | 2024-12-09 15:01 | XMS_ITS | Clinical Summary ---
Author Organization [facility] Address [address] [place] [address] Care Team Providers Care Press Catcher Name Role Phone Luzma Vega MD Primary Care Provider [phone] Allergies Active Allergy Reactions Criticality Noted Date [...] this topic Medical Devices Implanted Type Area Eligibility Specialist Device Identifier Shelf Expiration Date Model / Serial / Lot Sponge Surgiflo 8ml Hemostatic Matrix Absorbable Latex Free - [id number] - [id number] Implanted:Qty: 1 on 11/18/2017 by Kwasi Vivar MD at [facility] Hemostatic Agent Anterior: Spine Cervical [employer] 04/26/2019 [id number] / / [id number] Shell R3 Standard 54mm 3 Hole Porous Acetabular Hip - 798114 - [id number] Implanted:Qty: 1 on 09/26/2016 by Seth Whittington MD at [facility] Right: Hip [employer] 06/04/2026 [id number] / / [id number] Liner R3 20d 54mm 36mm Xlpe Acetabular Hip - 624164 - [id number] Implanted:Qty: 1 on 09/26/2016 by Seth Whittington MD at [facility] Right: Hip [employer] 07/23/2026 [id number] / / [id number] Stem Polarstem 2 Standard Cementless Titanium Levin Femoral Hip - 224914 - [id number] Implanted:Qty: 1 on 09/26/2016 by Seth Whittington MD at [facility] Right: Hip [employer] 05/27/2023 [id number] / / [id number] Head [place] +4mm 12\14 36mm Tapered Cocr Femoral Hip - 851970 - [id number] Implanted:Qty: 1 on 09/26/2016 by Seth Whittington MD at [facility] and Med Right: Hip [employer] 05/25/2026 [id number] / / [id number] System Hip Por Fem Cocr Head Pressfit R3 Aubrey Xlpe Liner - 642427 - [id number] Implanted:Qty: 1 on 09/26/2016 by Seth Whittington MD at [facility] [place] and Med Right: Hip [employer] [id number] / / Graft Cornerstone Asr Lordotic [id number] Block Cancellous - 691947 - [id number] Implanted:Qty: 1 on 11/18/2017 by Kwasi Vivar MD at [facility] [place] and Med Anterior: Spine Cervical [employer] 05/13/2020 [id number] / [id number] / [id number] Plate 14mm Xtend Bone Ant Crv - 905650 - [id number] Implanted:Qty: 1 on 11/18/2017 by Kwasi Vivar MD at [facility] [place] and Med Anterior: Spine Cervical [employer] 161.114 / / Screw Bone 4.2mm Selftap - 995828 - [id number] Implanted:Qty: 4 on 11/18/2017 by Kwasi Vivar MD at [facility] and Med Anterior: Spine Cervical [employer] 161.316 / / Advance Directives For more information, please contact: [phone] Latest Code Status on File Code Status Date Activated Date Inactivated Comments Full Code 11/18/2017 2:15 PM 11/19/2017 3:38 PM This code status was ascertained in the following way: discussion with healthcare dairy supplies sales representative . Code Status History Code Status Date Activated Date Inactivated Comments Full Code 09/26/2016 2:57 PM 09/27/2016 8:58 PM This co de status was ascertained in the following way: per chart. Full Code 09/26/2016 10:27 AM 09/26/2016 2:57 PM This c ode status was ascertained in the following way: per chart Care Teams Press Catcher Relationship Specialty Start Date End Date Luzma Vega MD [address] [place] [address] [place] [phone] PCP - General Family Medicine 09/25/17
--- NOTE | 2024-12-09 15:03 | MHC.PC.OV ---
Vital Signs 12/09/24 15:12 Height 5 ft 9 in Weight 200 lb BMI 29.5 BP 130/66 Blood Pressure Location Rt brachial Position Sitting Respiration 14 Pulse 73 Pulse Source Pulse Oximeter Temp 97.8 F Temp Source Oral Pulse Oximetry (%) 98 Oxygen Delivery Method Room Air Intake Visit Reasons: f/u diabetes, hypertension, chronic conditions Intake Note: Patient is scheduled for follow-up for diabetes,hypertension, and chronic condition he states that his chronic bronchitis is back and need something for it. Allergies metformin Allergy (Verified 12/09/24 15:09) Diarrhea Medication List - Last Reconciled 12/09/24 by Sebastian Rivera MD amlodipine 5 mg PO QAM 90 days aspirin 81 mg PO DAILY atorvastatin 80 mg PO DAILY 90 days azithromycin (Zithromax Z-Dexter) take 500 mg today (day 1), then 250 mg for 4 days (days 2-5) PO 5 days fenofibrate micronized 200 mg PO QPM 90 days glipizide ER 10 mg PO QAM 90 days lisinopril 40 mg PO QAM 90 days metoprolol succinate ER 50 mg PO QAM 90 days prednisone 20 mg PO DAILY 4 days sitagliptin phosphate 100 mg PO DAILY 30 days solifenacin (Vesicare) 5 mg PO DAILY 30 days Tobacco use date assessed: 12/09/24 Fall risk assessment: 2 + Falls in past year Last assessed Fall Risk: 08/28/24 Dental Screening Dental Screen Date: 12/09/24 Did you have a dental visit in the last 12 months?: No Did you have a dental problem in the last 6 months where you did not have access to dental care?: No Was dental information given to patient?: No HPI f/u diabetes, hypertension, chronic conditions HPI Details 84 y/o male presents to f/u diabetes, hypertension, chronic conditions. Last A1c 05/24/24 7.4%. He is on sitagliptin 100mg, glipizide 10mg. He notes he has gained about 10 lbs since last office visit. Blood pressure today 130/66, 73p. He is on amlodipine 5mg, lisinopril 40mg, metoprolol 50mg. Labs drawn 11/15/24. Reviewed labs with pt. Ongoing mild anemia. He notes this has been ongoing since he was in his 20s. HPI Comments History of Present Illness Details Documentation assistance for Sebastian Rivera MD, was provided by Garrett Velazquez,? Director [employer] on 12/09/2024 at 3:47 PM EST. I, Dr. Rivera, have read, observed, and verified documentation. ?? 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 1. Little interest or pleasure in doing things: not at all 2. Feeling down, depressed, or hopeless: not at all 3. Trouble falling or staying asleep, or sleeping too much: not at all 4. Feeling tired or having little energy: not at all 5. Poor appetite or overeating: not at all 6. Feeling bad about yourself - or that you are a failure or have let yourself or your family down: not at all 7. Trouble concentrating on things, such as reading the newspaper or watching television: not at all 8. Moving or speaking so slowly that other people could have noticed. Or the opposite - being so fidgety or restless that you have been moving around a lot more than usual: not at all 9. Thoughts that you would be better off or of hurting yourself in some way: not at all Total score: 0 Source: Developed by Drs. Seth Zhang, Vicky Wright, Johnie Crowley and colleagues, with an educational heike from [employer]. Thrive Questionnaire Date Thrive assessed: 05/24/24 I am a: Patient What is your living situation today?: I have a steady place to live Within the past 12 months, did the food you bought not last and you didn't have the money to get more?: Never true Within the past 12 months, did you worry whether your food would run out before you got money to buy more?: Never true Do you have trouble paying for medicines?: No Do you have trouble getting transportation to medical appointments?: No Do you have trouble paying your heating and electricity bill?: No Do you have trouble taking care of your child, family member or friend?: No Do you have trouble with day-to-day activities such as bathing, preparing meals, shopping, managing finances, etc.?: No Are you currently unemployed and looking for a job?: No Are you interested in more education?: No Please select the resources that you would like help with: None Currently or been in a relationship where the following occur: No concerns reported THRIVE Score: 0 AUDIT C Alcohol Use Questionnaire (AUDIT-C) 1. How often do you have a drink containing alcohol?: 2-3 times a week 2. How many drinks containing alcohol do you have on a typical day when you are drinking?: 1 or 2 3. How often do you have six or more drinks on one occasion?: Never Total Score: 3 ROCK-7 AMB Questionnaire ROCK-7 Date ROCK - 7 assessed: 12/04/23 Feeling nervous, anxious, or on edge: 0 = Not at all Not being able to stop or control worryin = Not at all Worrying too much about different things: 0 = Not at all Trouble relaxin = Not at all Being so restless that it is hard to sit still: 0 = Not at all Becoming easily annoyed or irritable: 0 = Not at all Feeling afraid as if something awful might happen: 0 = Not at all Total ROCK-7 score (0-4 normal; 5-9 mild; 10-14 moderate; 15-21 severe): 0 Source: Developed by Drs. Seth Zhang, Vicky Wrgiht, Johnie Crowley and colleagues, with an educational heike from [employer]. Review of Systems Const Denies chills, Denies fatigue, Denies fever(s), Denies headache(s) and Denies weakness ENT Denies dizziness and Denies headache(s) Card Denies dyspnea Resp Denies cough, Denies dyspnea, Denies wheezing and Denies other (shortness of breath) Musc Denies numbness and Denies tingling Neuro Denies dizziness, Denies headache(s), Denies numbness, Denies tingling and Denies weakness Psych Denies anxiety and Denies depression Endo Denies fatigue Aller/Immun Denies wheezing Physical exam (Primary Care) Vital Signs: Last Vital Signs Temp 97.8 F 12/09/24 15:12 Pulse 73 12/09/24 15:12 Resp 14 12/09/24 15:12 BP 130/66 12/09/24 15:12 Pulse Ox 98 12/09/24 15:12 Oxygen Delivery Method Room Air 12/09/24 15:12 BMI result Body Mass Index 29.5 Tobacco/Smoking Status: Tobacco use Status Tobacco use date assessed 12/09/24 12/09/24 15:17 Patient Tobacco Use Status Never used Tobacco 12/09/24 15:05 e-Cigarette/Vaping Use Never Used 12/09/24 15:05 PHQ-9: PHQ-9 Score PHQ-9: Total score 0 12/09/24 15:39 Thrive Assessment: Date of Thrive Assessment Date Thrive assessed 05/24/24 12/09/24 15:05 Currently or been in a relationship where the following occur: No concerns reported Const General: well developed; No acute distress Nutritional Appearance: well nourished Orientation/consciousness: patient oriented x3 [facility] Head: Yes normocephalic and Yes atraumatic Eyes General: appearance normal, both eyes and all related structures Pupils: Equal, round and reactive pupils present EOM: EOMs intact bilaterally Resp Other: Fine crackles/coarseness Effort & Inspection: normal respiratory effort Neuro General: patient oriented x3 and gait normal Cranial nerves: Yes Equal, round and reactive pupils present Psych Affect: normal affect Coding Level of Care Code Est Pt Level 4 (18974) Diagnoses Diabetes E11.9 Hypertension I10 Anemia D64.9 Bronchitis J40 Assessment & Plan Assessment & Plan (1) Diabetes: Code(s): E11.9 - Type 2 diabetes mellitus without complications Category: Medical Plan: A1c?is?too?high.??Goal?is?about?7.0% Encouraged?weight?loss?and?diabetic?diet He?has?tried?metformin?in?the?past?and?had?noted?some?diarrhea.??This?was?complicating?his?ability?to?work?but?he?is?now?retired. He?is?willing?to?try?this?again?so?I?will?send?script Continue?glipizide?and?Januvia. We?discussed?that?if?he?is?not?able?to?tolerate?metformin?we?can?try?Lantus.??He?was?interested?in?this?also. (2) Hypertension: Code(s): I10 - Essential (primary) hypertension Category: Medical Plan: Blood?pressure?is?controlled.??Goal?is?less?than?140/90 Continue?current?medication (3) Anemia: Code(s): D64.9 - Anemia, unspecified Category: Medical Plan: Longstanding?stable?anemia.??Patient?says?he?has?had?anemia?for?greater?than?50?years. Will?continue?to?monitor?periodically (4) Bronchitis: Code(s): J40 - Bronchitis, not specified as acute or chronic Category: Medical Plan: Will?give?him?a?Z-Dexter?and?a?short?course?of?prednisone Call?or?return?to?office?if?worsening?or?not?improving Advised?patient?that?blood?sugars?may be?elevated?for?few?days?while?on?prednisone Orders: Orders Complete Blood Count Auto Diff Today D64.9 - Anemia, unspecified, Z00.00 - Encounter for general adult medical examination without abnormal findings Prostate Specific Antigen Scr Today D64.9 - Anemia, unspecified, Z12.5 - Encounter for screening for malignant neoplasm of prostate Lipid Panel Today E78.5 - Hyperlipidemia, unspecified, Z00.00 - Encounter for general adult medical examination without abnormal findings Comprehensive [place]. Panel Fast Today E78.5 - Hyperlipidemia, unspecified, Z00.00 - Encounter for general adult medical examination without abnormal findings UA CC w/rflx Micro + Cult Today E78.5 - Hyperlipidemia, unspecified, Z00.00 - Encounter for general adult medical examination without abnormal findings Medications: New azithromycin (Zithromax Z-Dexter) take 500 mg today (day 1), then 250 mg for 4 days (days 2-5) PO 5 days 6 tabs 0RF prednisone 20 mg PO DAILY 4 days 4 tabs 0RF
[2024-12-09 15:12] VITALS: BP 130/66; PULSE 73; RESP 14; TEMP 36.6; O2SAT 98; BMI 29.5
== END 2024-12-09 15:55 | disposition home or self-care (01) ==
LOC: HO.HMCFM 14:25
PROVIDERS: PCP Family Medicine; Visit Provider Family Medicine
DX: E11.9 Type 2 diabetes mellitus without complications (principal); I10 Essential (primary) hypertension; D64.9 Anemia, unspecified; J40 Bronchitis, not specified as acute or chronic

== ENCOUNTER → 2024-12-09 14:24 | Outpatient (BNVA) | payer OTHER, SELFPAY | PROVIDERS: PCP Family Medicine; Visit Provider Family Medicine | DX: Z13.89 Encounter for screening for other disorder (principal) ==

== ENCOUNTER 2025-03-23 10:10 | Outpatient (REF) | payer OTHER, SELFPAY ==
--- OUTSIDE RECORDS SUMMARY | 2025-03-23 10:58 | XMS_ITS | Clinical Summary ---
Author Organization [facility] Address [address] [place] [address] Care Team Providers Care Wrap Checker Name Role Phone Luzma Vega MD Primary Care Provider [phone] Allergies Active Allergy Reactions Criticality Noted Date [...] 82 11/19/2017 8:05 AM EDT Temperature 37.6 C (99.6 F) 11/19/2017 8:05 AM EDT Respiratory Rate 18 11/19/2017 8:05 AM EDT [...] 1-dose 75+ series) 2016 Influenza Vaccine (#1) 2025 Hepatitis B Vaccines Aged Out No long er eligible based on patient's age to complete this topic RSV Ped < 20 months Aged Out No longe r eligible based on patient's age to complete this topic Medical Devices Implanted Type Area House Builder Device Identifier Shelf Expiration Date Model / Serial / Lot Sponge Surgiflo 8ml Hemostatic Matrix Absorbable Latex Free - [id number] - [id number] Implanted:Qty: 1 on 11/18/2017 by Kwasi Vivar MD at [facility] Hemostatic Agent Anterior: Spine Cervical [employer] 04/26/2019 [id number] / / [id number] Shell R3 Standard 54mm 3 Hole Porous Acetabular Hip - 872732 - [id number] Implanted:Qty: 1 on 09/26/2016 by Seth Whittington MD at [facility] Right: Hip [employer] 06/04/2026 [id number] / / [id number] Liner R3 20d 54mm 36mm Xlpe Acetabular Hip - 628274 - [id number] Implanted:Qty: 1 on 09/26/2016 by Seth Whittington MD at [facility] Right: Hip [employer] 07/23/2026 [id number] / / [id number] Stem Polarstem 2 Standard Cementless Titanium Levin Femoral Hip - 148528 - [id number] Implanted:Qty: 1 on 09/26/2016 by Seth Whittington MD at [facility] Right: Hip [employer] 05/27/2023 [id number] / / [id number] Head [place] +4mm 12\14 36mm Tapered Cocr Femoral Hip - 798366 - [id number] Implanted:Qty: 1 on 09/26/2016 by Seth Whittington MD at [facility] and Med Right: Hip [employer] 05/25/2026 [id number] / / [id number] System Hip Por Fem Cocr Head Pressfit R3 Aubrey Xlpe Liner - 873931 - [id number] Implanted:Qty: 1 on 09/26/2016 by Seth Whittington MD at [facility] and Med Right: Hip [employer] [id number] / / Graft Cornerstone Asr Lordotic [id number] Block Cancellous - 487090 - [id number] Implanted:Qty: 1 on 11/18/2017 by Kwasi Vivar MD at [facility] and Med Anterior: Spine Cervical [employer] 05/13/2020 [id number] / [id number] / [id number] Plate 14mm Xtend Bone Ant Crv - 157733 - [id number] Implanted:Qty: 1 on 11/18/2017 by Kwasi Vivar MD at [facility] and Med Anterior: Spine Cervical [employer] 161.114 / / Screw Bone 4.2mm Selftap - 724306 - [id number] Implanted:Qty: 4 on 11/18/2017 by Kwasi Vivar MD at [facility] and Med Anterior: Spine Cervical [employer] 161.316 / / Advance Directives For more information, please contact: [phone] Latest Code Status on File Code Status Date Activated Date Inactivated Comments Full Code 11/18/2017 2:15 PM 11/19/2017 3:38 PM This code status was ascertained in the following way: discussion with healthcare sales representative girls' apparel . Code Status History Code Status Date Activated Date Inactivated Comments Full Code 09/26/2016 2:57 PM 09/27/2016 8:58 PM This co de status was ascertained in the following way: per chart. Full Code 09/26/2016 10:27 AM 09/26/2016 2:57 PM This c ode status was ascertained in the following way: per chart Care Teams Wrap Checker Relationship Specialty Start Date End Date Luzma Vega MD [address] [place] [address] [place] [address] PCP - General Family Medicine 09/25/17
--- OUTSIDE RECORDS SUMMARY | 2025-03-23 10:58 | XMS_ITS | Clinical Summary ---
[facility] Organization [email or web address] Address [address] [place] [id number] Care Team Providers Care Business Relationship Manager Name Role Phone Luzma Vega MD Primary Care Provider [phone] Surgical History Surgery Date Site/Laterality Comments BRAIN SURGERY PROCEDURE:BRAIN SURGERY;COMMENT:plate in forehead SHOULDER SURGERY Right PROCEDURE:SHOULDER SURGERY;COMMENT:x2 KNEE SURGERY PROCEDURE:KNEE SURGERY EYE SURGERY PROCEDURE:EYE SURGERY CERVICAL FUSION 11/18/2017 Right Anterior PROCEDURE:CERVICAL FUSION;COMMENT:Procedure: C4-C5 ANTERIOR CERVICAL DISC FUSION; Surgeon: Kwasi Vivar MD; Location: [facility] MAIN OPERATING ROOM; Service: Spine; Laterality: Right Anterior; TOTAL HIP ARTHROPLASTY 09/26/2016 Right PROCEDURE:TOTAL HIP ARTHROPLASTY;COMMENT:Procedure: REPLACEMENT TOTAL HIP; Surgeon: Seth Whittington MD; Location: [facility] Service: Orthopedics; Laterality: Right; Medical History Medical History Date Comments Osteoarthritis DX:Osteoarthriti s Hyperlipidemia DX:Hyperlipidemi a Hypertension DX:Hypertension Eczema DX:Eczema;COMMEN T:face and chest currently not active Peripheral neuropathy DX:Periphe ral neuropathy;COMMENT:right side hip down leg numbness Diabetes mellitus, type II ( CMS/HCC V24, CMS/HCC V28) DX:Diabetes mellitus, type I I ([facility]) GERD (gastroesophageal reflux disease) DX:GERD (gastroesophageal [...] Vaccine (1 - 2023-2 5 season) 2024 Depression Screening 07/28/2024 Influenza Vaccine (#1) 2025 HIB Vaccines Aged Out No longer [...] age to complete this topic Care Teams Business Relationship Manager Relationship Specialty Start Date End Date Luzma Vega MD [address] [place] [address] [place] [phone] PCP - General Family Medicine 09/25/17
[2025-03-23 14:30] LABS: MANUAL DIFF FLAG NO
[2025-03-23 14:35] LABS: Appearance Urine Clear; Glucose Urine UA >=1000 mg/dL (Negative); PH 6.5 (5.0-9.0); Specific Gravity - Urine 1.020 (1.005-1.025); UMIC TRIGGER UACC YES
[2025-03-23 14:35] LABS: Hematocrit 37.2 % (42.0-52.0); Hemoglobin 12.2 g/dl (14.0-18.0); Imm Gran Abs Auto 0.03 X10*3/uL (0.00-0.03); Imm Gran Pct Auto 0.5 % (0.0-0.4); Lymphocytes Absolute Auto 1.3 X10*3/uL (1.2-4.9); Mean Corpuscular HGB Conc 32.8 g/dl (31.0-36.0); Mean Corpuscular Hemoglobin 31.4 pg (27.0-33.0); Mean Corpuscular Volume 95.9 fL (80.0-98.0); NRBC Abs Auto 0.000 X10*3/uL (0.0-0.012); NRBC Pct Auto 0.0 /100WBC (0.0-0.2); Platelet Count 135 X10*3/uL (160-400); Red Blood Count 3.88 X10*6/uL (4.60-5.80); White Blood Count 5.7 X10*3/uL (4.8-10.8)
[2025-03-23 15:32] LABS: Alanine Aminotransferase 39 U/L (0-40); Albumin Level 4.4 g/dL (3.5-5.0); Alkaline Phosphatase 50 U/L (39-117); Anion Gap 10 (12-20); Aspartate Amino Transferase 43 U/L (5-37); Blood Urea Nitrogen 16 mg/dL (9-16); Calcium 9.5 mg/dL (8.4-10.2); Carbon Dioxide 26 mmol/L (22-29); Chloride 108 mmol/L (96-108); Cholesterol 187 mg/dL (<200); Estimated Glomerular Filt Rate > 60; HDL Cholesterol 59 mg/dL (>40); Potassium 4.2 mmol/L (3.3-5.1); Sodium 140 mmol/L (135-145); Total Protein 7.0 g/dL (6.5-8.0); Triglycerides 108 mg/dL (<150)
== END 2025-03-23 10:11 | disposition home or self-care (01) ==
LOC: HO.WFDLDS 10:10
PROVIDERS: Visit Provider Family Medicine
DX: Z00.00 Encounter for general adult medical examination without abnormal findings (principal); Z12.5 Encounter for screening for malignant neoplasm of prostate; D64.9 Anemia, unspecified; E78.5 Hyperlipidemia, unspecified
CPT/HCPCS: 36415; 80053; 80061; 81001; 84153; 85025

== ENCOUNTER 2025-03-25 08:27 | Outpatient (AMB) | payer OTHER, SELFPAY ==
--- NOTE | 2025-03-25 08:36 | A.OFFPC_ITS ---
Vital Signs 03/25/25 08:41 Height 5 ft 9 in Weight 200 lb 4 oz BMI 29.6 BP 150/67 H Blood Pressure Location Lt brachial Position Sitting Respiration 16 Pulse 65 Pulse Source Pulse Oximeter Temp 97.8 F Temp Source Oral Pulse Oximetry (%) 99 Oxygen Delivery Method Room Air Intake Visit Reasons: f/u diabetes Intake Note: patient here for follow up on Diabetes Power Tong Operator Required: No Allergies metformin Allergy (Verified 03/25/25 08:38) Diarrhea Medication List - Last Reconciled 03/25/25 by Sebastian Rivera MD amlodipine 5 mg PO QAM 90 days aspirin 81 mg PO DAILY atorvastatin 80 mg PO DAILY 90 days fenofibrate micronized 200 mg PO QPM 90 days glipizide ER 10 mg PO QAM 90 days lisinopril 40 mg PO QAM 90 days metformin 250 mg (1/2 x 500 mg) PO BID 90 days metoprolol succinate ER 50 mg PO QAM 90 days sitagliptin phosphate 100 mg PO DAILY 30 days sitagliptin phosphate 100 mg PO DAILY 30 days solifenacin (Vesicare) 5 mg PO DAILY 30 days Tobacco use date assessed: 03/25/25 Fall risk assessment: 2 + Falls in past year Last assessed Fall Risk: 03/25/25 Dental Screening Dental Screen Date: 03/25/25 Did you have a dental visit in the last 12 months?: No Did you have a dental problem in the last 6 months where you did not have access to dental care?: No Was dental information given to patient?: Patient has dentist HPI f/u diabetes HPI Details 84 y/o male presents to f/u teetee woo bs. Labs drawn 03/23/25. Reviewed labs with pt. Ongoing mild anemia. AST elevated t 43, ALT 39. Triglycerides 108. TC 187. LDL 107. HDL 59. He is on artovastatin daily. PSA 1.84. A1c today 7.6%. He is on sitagliptin, glipizide. Reports some imbalance. Denies any numbness/weakness of his legs. He notes he has fallen twice already. HPI Comments History of Present Illness Details Documentation assistance for Sebastian Rivera MD, was provided by Garrett Velazquez,? Miller Helper on 03/25/2025 at 8:56 AM EST. I, Dr. Rivera, have read, observed, and verified documentation. 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 Current occupational exposures/hazards: No Cognitive needs: No Hearing needs: No Vision needs: Yes Questionnaire Thrive Questionnaire Date Thrive assessed: 05/24/24 I am a: Patient What is your living situation today?: I have a steady place to live Within the past 12 months, did the food you bought not last and you didn't have the money to get more?: Never true Within the past 12 months, did you worry whether your food would run out before you got money to buy more?: Never true Do you have trouble paying for medicines?: No Do you have trouble getting transportation to medical appointments?: No Do you have trouble paying your heating and electricity bill?: No Do you have trouble taking care of your child, family member or friend?: No Do you have trouble with day-to-day activities such as bathing, preparing meals, shopping, managing finances, etc.?: No Are you currently unemployed and looking for a job?: No Are you interested in more education?: No Please select the resources that you would like help with: None Currently or been in a relationship where the following occur: No concerns reported THRIVE Score: 0 ROCK-7 AMB Questionnaire ROCK-7 Date ROCK - 7 assessed: 12/04/23 Source: Developed by Drs. Seth Zhang, Vicky Wright, Johnie Crowley and colleagues, with an educational heike from [employer]. Review of Systems Const Denies chills, Denies fatigue, Denies fever(s), Denies headache(s) and Denies weakness ENT Denies dizziness and Denies headache(s) Card Denies dyspnea Resp Denies cough, Denies dyspnea, Denies wheezing and Denies other (shortness of breath) Musc Denies numbness and Denies tingling Neuro Denies dizziness, Denies headache(s), Denies numbness, Denies tingling and Denies weakness Psych Denies anxiety and Denies depression Endo Denies fatigue Aller/Immun Denies wheezing Physical exam (Primary Care) Vital Signs: Last Vital Signs Temp 97.8 F 03/25/25 08:41 Pulse 65 03/25/25 08:41 Resp 16 03/25/25 08:41 BP 150/67 H 03/25/25 08:41 Pulse Ox 99 03/25/25 08:41 Oxygen Delivery Method Room Air 03/25/25 08:41 BMI result Body Mass Index 29.6 Tobacco/Smoking Status: Tobacco use Status Tobacco use date assessed 03/25/25 03/25/25 08:44 Patient Tobacco Use Status Never used Tobacco 03/25/25 08:38 e-Cigarette/Vaping Use Never Used 03/25/25 08:38 Thrive Assessment: Date of Thrive Assessment Date Thrive assessed 05/24/24 03/25/25 08:38 Currently or been in a relationship where the following occur: No concerns reported Const General: well developed; No acute distress Nutritional Appearance: well nourished Orientation/consciousness: patient oriented x3 HENMT Head: Yes normocephalic and Yes atraumatic Eyes General: appearance normal, both eyes and all related structures Pupils: Equal, round and reactive pupils present EOM: EOMs intact bilaterally Resp Effort & Inspection: normal respiratory effort Neuro General: patient oriented x3 and gait normal Cranial nerves: Yes Equal, round and reactive pupils present Psych Affect: normal affect Coding Level of Care Code Est Pt Level 4 (51018) Diagnoses Diabetes E11.9 Hypertension I10 Hyperlipidemia E78.5 Mild anemia D64.9 Elevated liver enzymes R74.8 Unsteady gait R26.81 Imbalance R26.89 Assessment & Plan Assessment & Plan (1) Diabetes: Code(s): E11.9 - Type 2 diabetes mellitus without complications Category: Medical Plan: A1c 7.6% which is too high. Had discussed starting metformin again. He had had loose stools with this in the past but wants to try it again Send this medication Continue glipizide and Januvia Work on diabetic diet and exercise as well as weight loss (2) Hypertension: Code(s): I10 - Essential (primary) hypertension Category: Medical Plan: Blood pressure is too high today but patient says he forgot to take his medications morning No changes to medication regimen but I encouraged him to work on consistency with his meds (3) Hyperlipidemia: Code(s): E78.5 - Hyperlipidemia, unspecified Category: Medical Plan: LDL cholesterol is above goal of less than 100 He notes that he is gave him weaned is not exercising as much He will continue atorvastatin 80 mg daily He will work on lifestyle changes If still elevated at his next visit, we can switch atorvastatin to rosuvastatin (4) Mild anemia: Code(s): D64.9 - Anemia, unspecified Category: Medical Plan: Stable (5) Elevated liver enzymes: Code(s): R74.8 - Abnormal levels of other serum enzymes Category: Medical Plan: Mildly elevated liver enzyme and patient notes that he has gained weight that he has not lost He work on weight loss and good hydration Will recheck with next lab draw If still elevated consider liver ultrasound (6) Unsteady gait: Code(s): R26.81 - Unsteadiness on feet Category: Medical (7) Imbalance: Code(s): R26.89 - Other abnormalities of gait and mobility Category: Medical Plan Patient notes some unsteady gait and imbalance Neuro exam shows no focal deficits but he does have bilateral lower extremity weakness Start physical therapy Encouraged him to use a cane or walking stick for fall prevention Orders: Orders PT Evaluation and Treatment Today R26.81 - Unsteadiness on feet, R26.89 - Other abnormalities of gait and mobility, R29.898 - Other symptoms and signs involving the musculoskeletal system Comprehensive [place]. Panel Fast Today R74.8 - Abnormal levels of other serum enzymes, Z00.00 - Encounter for general adult medical examination without abnormal findings Medications: New metformin 250 mg (1/2 x 500 mg) PO BID 90 tabs 3RF 90 days
[2025-03-25 08:41] VITALS: BP 150/67; PULSE 65; RESP 16; TEMP 36.6; O2SAT 99; BMI 29.6
--- OUTSIDE RECORDS SUMMARY | 2025-03-25 09:19 | XMS_ITS | Clinical Summary ---
Author Organization [facility] Address [address] [place] [address] Care Team Providers Care Radio Engineering Teacher Name Role Phone Luzma Vega MD Primary Care Provider [phone] Allergies Active Allergy Reactions Criticality Noted Date [...] this topic Medical Devices Implanted Type Area Second Officer Device Identifier Shelf Expiration Date Model / Serial / Lot Sponge Surgiflo 8ml Hemostatic Matrix Absorbable Latex Free - [id number] - [id number] Implanted:Qty: 1 on 11/18/2017 by Kwasi Vivar MD at [facility] Hemostatic Agent Anterior: Spine Cervical [employer] 04/26/2019 2991 / / [id number] Shell R3 Standard 54mm 3 Hole Porous Acetabular Hip - 940472 - [id number] Implanted:Qty: 1 on 09/26/2016 by Seth Whittington MD at [facility] Right: Hip [employer] 06/04/2026 [id number] / / [id number] Liner R3 20d 54mm 36mm Xlpe Acetabular Hip - 354424 - [id number] Implanted:Qty: 1 on 09/26/2016 by Seth Whittington MD at [facility] Right: Hip [employer] 07/23/2026 [id number] / / [id number] Stem Polarstem 2 Standard Cementless Titanium Levin Femoral Hip - 005547 - [id number] Implanted:Qty: 1 on 09/26/2016 by Seth Whittington MD at [facility] Right: Hip [employer] 05/27/2023 [id number] / / [id number] Head [place] +4mm 12\14 36mm Tapered Cocr Femoral Hip - 699914 - [id number] Implanted:Qty: 1 on 09/26/2016 by Seth Whittington MD at [facility] and [facility] Right: Hip [employer] 05/25/2026 [id number] / / [id number] System Hip Por Fem Cocr Head Pressfit R3 Aubrey Xlpe Liner - 552815 - [id number] Implanted:Qty: 1 on 09/26/2016 by Seth Whittington MD at [facility] and [facility] Right: Hip [employer] [id number] / / Graft [employer] Asr Lordotic [id number] Block Cancellous - 564849 - [id number] Implanted:Qty: 1 on 11/18/2017 by Kwasi Vivar MD at [facility] and [facility] Anterior: Spine Cervical [employer] 05/13/2020 [id number] / [id number] / [id number] Plate 14mm Xtend Bone Ant Crv - 561325 - [id number] Implanted:Qty: 1 on 11/18/2017 by Kwasi Vivar MD at [facility] and [facility] Anterior: Spine Cervical [employer] 161.114 / / Screw Bone 4.2mm Selftap - 644920 - [id number] Implanted:Qty: 4 on 11/18/2017 by Kwasi Vivar MD at [facility] and [facility] Anterior: Spine Cervical [employer] 161.316 / / Advance Directives For more information, please contact: [phone] Latest Code Status on File Code Status Date Activated Date Inactivated Comments Full Code 11/18/2017 2:15 PM 11/19/2017 3:38 PM This code status was ascertained in the following way: discussion with healthcare tax compliance representative . Code Status History Code Status Date Activated Date Inactivated Comments Full Code 09/26/2016 2:57 PM 09/27/2016 8:58 PM This co de status was ascertained in the following way: per chart. Full Code 09/26/2016 10:27 AM 09/26/2016 2:57 PM This c ode status was ascertained in the following way: per chart Care Teams Radio Engineering Teacher Relationship Specialty Start Date End Date Luzma Vega MD [address] [place] [address] [place] [address] PCP - General Family Medicine 09/25/17
--- OUTSIDE RECORDS SUMMARY | 2025-03-25 09:19 | XMS_ITS | Clinical Summary ---
[facility] Address [address] [place] [id number] Care Team Providers Care Concrete Crusher Loader Operator Name Role Phone Luzma Vega MD Primary Care Provider [phone] Surgical History Surgery Date Site/Laterality Comments BRAIN SURGERY PROCEDURE:BRAIN SURGERY;COMMENT:plate in forehead SHOULDER SURGERY Right PROCEDURE:SHOULDER SURGERY;COMMENT:x2 KNEE SURGERY PROCEDURE:KNEE SURGERY EYE SURGERY PROCEDURE:EYE SURGERY CERVICAL FUSION 11/18/2017 Right Anterior PROCEDURE:CERVICAL FUSION;COMMENT:Procedure: C4-C5 ANTERIOR CERVICAL DISC FUSION; Surgeon: Kwasi Vivar MD; Location: [facility] MAIN OPERATING ROOM; Service: Spine; Laterality: Right Anterior; TOTAL HIP ARTHROPLASTY 09/26/2016 Right PROCEDURE:TOTAL HIP ARTHROPLASTY;COMMENT:Procedure: REPLACEMENT TOTAL HIP; Surgeon: Seth Whittington MD; Location: [facility] ([facility]); Service: Orthopedics; Laterality: Right; Medical History Medical History Date Comments Osteoarthritis DX:Osteoarthriti s Hyperlipidemia DX:Hyperlipidemi a Hypertension DX:Hypertension Eczema DX:Eczema;COMMEN T:face and chest currently not active Peripheral neuropathy DX:Periphe ral neuropathy;COMMENT:right side hip down leg numbness Diabetes mellitus, type II ( CMS/HCC V24, CMS/HCC V28) DX:Diabetes mellitus, type I I ([facility]) GERD (gastroesophageal reflux disease) DX:GERD (gastroesophageal reflux [...] age to complete this topic Care Teams Concrete Crusher Loader Operator Relationship Specialty Start Date End Date Luzma Vega MD [address] [place] [address] [place] [address] PCP - General Family Medicine 09/25/17
== END 2025-03-25 09:18 | disposition home or self-care (01) ==
LOC: HO.HMCFM 08:28
PROVIDERS: PCP Family Medicine; Visit Provider Family Medicine
DX: E11.9 Type 2 diabetes mellitus without complications (principal); I10 Essential (primary) hypertension; E78.5 Hyperlipidemia, unspecified; D64.9 Anemia, unspecified; R74.8 Abnormal levels of other serum enzymes; R26.81 Unsteadiness on feet; R26.89 Other abnormalities of gait and mobility

== ENCOUNTER 2025-06-17 13:15 | Outpatient (REF) | payer OTHER, SELFPAY ==
[2025-06-17 19:46] LABS: Resp Syncy Virus RNA Qual PCR NEGATIVE (Negative); SARS COV2 PCR INHOUSE NEGATIVE (Negative)
== END 2025-06-17 13:16 | disposition home or self-care (01) ==
LOC: HO.LAB 13:15
PROVIDERS: PCP Family Medicine; Visit Provider Nurse Practitioner Family
DX: R05.3 Chronic cough (principal)
CPT/HCPCS: 87637

== ENCOUNTER 2025-06-17 13:15 | Outpatient (AMB) | payer OTHER, SELFPAY ==
--- NOTE | 2025-06-17 13:24 | A.OFFPC_ITS ---
Vital Signs 06/17/25 13:32 06/17/25 14:10 Height 5 ft 9 in Weight 200 lb 4 oz BMI 29.6 BP 155/66 H 138/60 Blood Pressure Location Rt brachial Rt brachial Position Sitting Sitting Respiration 16 Pulse 71 Pulse Source Pulse Oximeter Temp 98.2 F Temp Source Temporal Artery Scan Pulse Oximetry (%) 97 Oxygen Delivery Method Room Air Intake Visit Reasons: Bronchitis Intake Note: patient here c/o Bronchitis for almost a month Financial Reporting Director Required: No Allergies No Known Allergies Allergy (Verified 06/17/25 13:46) Medication List - Last Reconciled 06/17/25 by Raysa Littlejohn CNP amlodipine 5 mg PO QAM 90 days aspirin 81 mg PO DAILY atorvastatin 80 mg PO DAILY 90 days fenofibrate micronized 200 mg PO QPM 90 days glipizide ER 10 mg PO QAM 90 days lisinopril 40 mg PO QAM 90 days metformin 250 mg (1/2 x 500 mg) PO BID 90 days metoprolol succinate ER 50 mg PO QAM 90 days sitagliptin phosphate 100 mg PO DAILY 30 days sitagliptin phosphate 100 mg PO DAILY 30 days solifenacin (Vesicare) 5 mg PO DAILY 30 days Tobacco use date assessed: 06/17/25 Fall risk assessment: 2 + Falls in past year Last assessed Fall Risk: 06/17/25 Dental Screening Dental Screen Date: 06/17/25 Did you have a dental visit in the last 12 months?: No Did you have a dental problem in the last 6 months where you did not have access to dental care?: No Was dental information given to patient?: No HPI HPI Comments History of Present Illness Details 84-year-old male presents with complaint s of persistent productive cough with love mucus, especially at night, for the past one month. He notes raspy voice due to much buildup in his chest. He denies difficulty breathing or wheezing. He denies fever, chills, body aches, or weakness. Denies sore throat or nasal congestion. Denies sick contact. He Reports h/o chronic bronchitis. He states that his bronchitis symptoms are often relieved with antibiotics. 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 Current occupational exposures/hazards: No Cognitive needs: No Hearing needs: No Vision needs: Yes Questionnaire Thrive Questionnaire Date Thrive assessed: 10/20/24 I am a: Patient What is your living situation today?: I have a steady place to live Within the past 12 months, did the food you bought not last and you didn't have the money to get more?: Never true Within the past 12 months, did you worry whether your food would run out before you got money to buy more?: Never true Do you have trouble paying for medicines?: No Do you have trouble getting transportation to medical appointments?: No Do you have trouble paying your heating and electricity bill?: No Do you have trouble taking care of your child, family member or friend?: No Do you have trouble with day-to-day activities such as bathing, preparing meals, shopping, managing finances, etc.?: No Are you currently unemployed and looking for a job?: No Are you interested in more education?: No Please select the resources that you would like help with: None Currently or been in a relationship where the following occur: No concerns reported THRIVE Score: 0 ROCK-7 AMB Questionnaire ROCK-7 Date ROCK - 7 assessed: 12/04/23 Source: Developed by Drs. Seth Zhang, Vicky Wright, Johnie Crowley and colleagues, with an educational heike from [employer]. Review of Systems Const Details: Const Denies chills, Denies fatigue, Denies fever(s), Denies headache(s) and Denies weakness ENT Denies dizziness and Denies headache(s) Card Denies chest pain, Denies lightheadedness, Denies dyspnea and Denies other (Palpitations) Resp Reports cough, Denies dyspnea, Denies wheezing and Denies other ( shortness of breath) GI Denies abdominal pain, Denies melena, Denies hematochezia, Denies change in bowel habits, Denies dyspepsia and Denies nausea Denies hematuria and Denies dysuria Musc Denies abnormal gait, Denies myalgias, Denies arthralgias, Denies numbness and Denies tingling Skin/Breast Denies rash, Denies unusual bruising and Denies wounds Neuro Denies abnormal gait, Denies dizziness, Denies headache(s), Denies memory loss, Denies numbness, Denies Sensory deficit (Neuro), Denies tingling and Denies weakness Psych Denies anxiety, Denies depression, Denies memory loss Endo Denies cold intolerance, Denies fatigue, Denies heat intolerance, Denies polydipsia and Denies polyuria Aller/Immun Denies wheezing Physical exam (Primary Care) Tobacco/Smoking Status: Tobacco use Status Tobacco use date assessed 03/25/25 06/17/25 13:24 Patient Tobacco Use Status Never used Tobacco 06/17/25 13:24 e-Cigarette/Vaping Use Never Used 06/17/25 13:24 Thrive Assessment: Date of Thrive Assessment Date Thrive assessed 10/20/24 06/17/25 13:24 Currently or been in a relationship where the following occur: No concerns reported Const Other: General: no acute distress and well developed Nutritional Appearance: well nourished Orientation/consciousness: patient oriented x3 [facility] Head: Yes normocephalic and Yes atraumatic Eyes General: appearance normal, both eyes and all related structures Pupils: Equal, round and reactive pupils present EOM: EOMs intact bilaterally Resp Effort & Inspection: normal respiratory effort Auscultation: clear to auscultation bilaterally Cardio Rate: regular rate Rhythm: regular rhythm Heart sounds: S1 normal heart sound present, S2 normal heart sound present, no gallops, no murmurs and no rubs Extrem General: Yes normal to inspection, No edema and No calf tenderness Skin General: warm and dry. Normal skin color. Normal skin turgor Neuro General: patient oriented x3, gait normal and no focal neuro deficit Cranial nerves: Yes Equal, round and reactive pupils present Cognition (Neuro): normal cognition Gait exam (Neuro): Normal gait present Sensory Exam: No Sensory deficit (Neuro) Psych Appearance: grossly normal Affect: normal affect Attitude: cooperative Thought process: Normal thought process present Coding Level of Care Code Est Pt Level 4 (16735) Diagnoses Cough R05.9 Assessment & Plan Assessment & Plan (1) Cough: Code(s): R05.9 - Cough, unspecified Category: Medical Plan: Normal physical exam. Lung sounds clear and equal bilaterally. Likely allergies. No evidence of bacterial infection, although viral illness is possible. Cetirizine and benzonatate as prescribed for allergies and cough respectively; advised to take as prescribed. Instructed on the risks, benefits, and potential adverse reactions of the medication. Adequate hydration and rest encouraged. Nasal swab collected and will be sent for COVID/flu/RSV. Follow-up with worsening or new symptoms. Verbalized understanding and agreed with the plan. Orders: Orders SARS-CoV2/FLU/RSV Today R05.9 - Cough, unspecified Medications: New cetirizine 10 mg PO DAILY 30 tabs 0RF 30 days benzonatate 100 mg PO BID PRN 10 caps 0RF cough
[2025-06-17 13:32] VITALS: BP 155/66; PULSE 71; RESP 16; TEMP 36.8; O2SAT 97; BMI 29.6
--- OUTSIDE RECORDS SUMMARY | 2025-06-17 13:33 | XMS_ITS | Clinical Summary ---
Author Organization [facility] Address [address] [place] [address] Care Team Providers Care Tank Pumper Panelboard Name Role Phone Luzma Vega MD Primary Care Provider [phone] Allergies Active Allergy Reactions Criticality Noted Date [...] this topic Medical Devices Implanted Type Area Stationary Steam Engineer Device Identifier Shelf Expiration Date Model / Serial / Lot Sponge Surgiflo 8ml Hemostatic Matrix Absorbable Latex Free - [id number] - [id number] Implanted:Qty: 1 on 11/18/2017 by Kwasi Vivar MD at [facility] and [facility] Hemostatic Agent Anterior: Spine Cervical [employer] 04/26/2019 [id number] / / [id number] Shell R3 Standard 54mm 3 Hole Porous Acetabular Hip - 618805 - [id number] Implanted:Qty: 1 on 09/26/2016 by Seth Whittington MD at [facility] and [facility] Right: Hip [employer] 06/04/2026 [id number] / / [id number] Liner R3 20d 54mm 36mm Xlpe Acetabular Hip - [id number] - [id number] Implanted:Qty: 1 on 09/26/2016 by eSth Whittington MD at [facility] and [facility] Right: Hip [employer] 07/23/2026 [id number] / / [id number] Stem Polarstem 2 Standard Cementless Titanium Levin Femoral Hip - 373334 - [id number] Implanted:Qty: 1 on 09/26/2016 by Seth Whittington MD at [facility] and [facility] Right: Hip [employer] 05/27/2023 [id number] / / [id number] Head [place] +4mm 12\14 36mm Tapered Cocr Femoral Hip - [id number] - [id number] Implanted:Qty: 1 on 09/26/2016 by Seth Whittington MD at [facility] and Med Right: Hip [employer] 05/25/2026 [id number] / / [id number] System Hip Por Fem Cocr Head Pressfit R3 Aubrey Xlpe Liner - [id number] - [id number] Implanted:Qty: 1 on 09/26/2016 by Seth Whittington MD at [facility] and Med Right: Hip [employer] [id number] / / Graft Cornerstone Asr Lordotic [id number] Block Cancellous - 950680 - [id number] Implanted:Qty: 1 on 11/18/2017 by Kwasi Vivar MD at [facility] and Med Anterior: Spine Cervical [employer] 05/13/2020 [id number] / [id number] / [id number] Plate 14mm Xtend Bone Ant Crv - 107369 - [id number] Implanted:Qty: 1 on 11/18/2017 by Kwasi Vivar MD at [facility] and Med Anterior: Spine Cervical [employer] 161.114 / / Screw Bone 4.2mm Selftap - [id number] - [id number] Implanted:Qty: 4 on 11/18/2017 by Kwasi Vivar MD at [facility] and Med Anterior: Spine Cervical [employer] 161.316 / / Advance Directives For more information, please contact: [phone] Latest Code Status on File Code Status Date Activated Date Inactivated Comments Full Code 11/18/2017 2:15 PM 11/19/2017 3:38 PM This code status was ascertained in the following way: discussion with healthcare commissary representative . Code Status History Code Status Date Activated Date Inactivated Comments Full Code 09/26/2016 2:57 PM 09/27/2016 8:58 PM This co de status was ascertained in the following way: per chart. Full Code 09/26/2016 10:27 AM 09/26/2016 2:57 PM This c ode status was ascertained in the following way: per chart Care Teams Tank Pumper Panelboard Relationship Specialty Start Date End Date Luzma Vega MD [address] [place] [address] [place] [id number] PCP - General Family Medicine 09/25/17
--- OUTSIDE RECORDS SUMMARY | 2025-06-17 13:33 | XMS_ITS | Clinical Summary ---
Author Organization [facility] Address [address] [place] [address] Care Team Providers Care Log Haul Chain Feeder Name Role Phone Luzma Vega MD Primary Care Provider [phone] Surgical History Surgery Date Site/Laterality Comments BRAIN SURGERY PROCEDURE:BRAIN SURGERY;COMMENT:plate in forehead SHOULDER SURGERY Right PROCEDURE:SHOULDER SURGERY;COMMENT:x2 KNEE SURGERY PROCEDURE:KNEE SURGERY EYE SURGERY PROCEDURE:EYE SURGERY CERVICAL FUSION 11/18/2017 Right Anterior PROCEDURE:CERVICAL FUSION;COMMENT:Procedure: C4-C5 ANTERIOR CERVICAL DISC FUSION; Surgeon: Kwasi Vivar MD; Location: [facility] MAIN [facility]PER[facility] RO[facility]; Service: Spine; Laterality: Right Anterior; TOTAL HIP ARTHROPLASTY 09/26/2016 Right PROCEDURE:TOTAL HIP ARTHROPLASTY;COMMENT:Procedure: REPLACEMENT TOTAL HIP; Surgeon: Seth Whittington MD; [facility]: [facility] Service: Orthopedics; [...] nts (1 - 1-dose 75+ series) 2016 Depression Screening 07/28/2024 COVID-19 Vaccine (1 - 2024-2 6 season) 2025 Influenza Vaccine (#1) 2025 HIB Vaccines Aged [...] age to complete this topic Care Teams Log Haul Chain Feeder Relationship Specialty Start Date End Date Luzma Vega MD [address] [place] [address] [place] [address] PCP - General Family Medicine 09/25/17
[2025-06-17 14:10] VITALS: BP 138/60
== END 2025-06-17 14:10 | disposition home or self-care (01) ==
LOC: HO.HMCFM 13:16
PROVIDERS: PCP Family Medicine; Visit Provider Nurse Practitioner Family
DX: R05.9 Cough, unspecified (principal)

== ENCOUNTER 2025-07-01 10:49 | Outpatient (AMB) | payer OTHER, SELFPAY ==
--- NOTE | 2025-07-01 10:57 | A.OFFPC_ITS ---
Vital Signs 07/01/25 11:05 Height 5 ft 9 in Weight 200 lb 4 oz BMI 29.6 BP 122/60 Blood Pressure Location Rt brachial Position Sitting Respiration 16 Pulse 74 Pulse Source Pulse Oximeter Temp 97.7 F Temp Source Temporal Artery Scan Pulse Oximetry (%) 95 Oxygen Delivery Method Room Air Intake Visit Reasons: f/u HLD, liver enzymes Intake Note: Steven present sin the office today for his cholesterol and liver enzymes. Cloth Washer Required: No Allergies No Known Allergies Allergy (Verified 07/01/25 11:02) Medication List - Last Reconciled 07/01/25 by Sebastian Rivera MD amlodipine 5 mg PO QAM 90 days aspirin 81 mg PO DAILY atorvastatin 80 mg PO DAILY 90 days benzonatate 100 mg PO BID PRN cetirizine 10 mg PO DAILY 30 days fenofibrate micronized 200 mg PO QPM 90 days glipizide ER 10 mg PO QAM 90 days lisinopril 40 mg PO QAM 90 days metformin 250 mg (1/2 x 500 mg) PO BID 90 days metoprolol succinate ER 50 mg PO QAM 90 days sitagliptin phosphate 100 mg PO DAILY 30 days solifenacin (Vesicare) 5 mg PO DAILY 30 days Tobacco use date assessed: 07/01/25 Fall risk assessment: 1 Fall in past year Last assessed Fall Risk: 07/01/25 Dental Screening Dental Screen Date: 07/01/25 Did you have a dental visit in the last 12 months?: No Did you have a dental problem in the last 6 months where you did not have access to dental care?: No Was dental information given to patient?: Patient declined HPI f/u HLD, liver enzymes HPI Details 84 y/o male presents to f/u HLD, liver enzymes. A1c today 07/01/25 7.8%. He is on glipizide 10mg, metformin 250mg b.i.d. Eye exam in December and is up to date. BP today 122/60, 74p. He is on lisinopril 40mg, metoprolol 50mg, metoprolol 50mg daily. Ongoing complaints of unsteady gait, imbalance. 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, 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 Current occupational exposures/hazards: No Cognitive needs: No Hearing needs: No Vision needs: Yes Questionnaire Thrive Questionnaire Date Thrive assessed: 10/20/24 I am a: Patient What is your living situation today?: I have a steady place to live Within the past 12 months, did the food you bought not last and you didn't have the money to get more?: Never true Within the past 12 months, did you worry whether your food would run out before you got money to buy more?: Never true Do you have trouble paying for medicines?: No Do you have trouble getting transportation to medical appointments?: No Do you have trouble paying your heating and electricity bill?: No Do you have trouble taking care of your child, family member or friend?: No Do you have trouble with day-to-day activities such as bathing, preparing meals, shopping, managing finances, etc.?: No Are you currently unemployed and looking for a job?: No Are you interested in more education?: No Please select the resources that you would like help with: None Currently or been in a relationship where the following occur: No concerns reported THRIVE Score: 0 ROCK-7 AMB Questionnaire ROCK-7 Date ROCK - 7 assessed: 12/04/23 Source: Developed by Drs. Seth Zhang, Vicky Wright, Johnie Crowley and colleagues, with an educational heike from [employer]. Review of Systems Const Denies chills, Denies fatigue, Denies fever(s), Denies headache(s) and Denies weakness ENT Denies dizziness and Denies headache(s) Card Denies dyspnea Resp Denies cough, Denies dyspnea, Denies wheezing and Denies other (shortness of breath) Musc Denies numbness and Denies tingling Neuro Denies dizziness, Denies headache(s), Denies numbness, Denies tingling and Denies weakness Psych Denies anxiety and Denies depression Endo Denies fatigue Aller/Immun Denies wheezing Physical exam (Primary Care) Vital Signs: Last Vital Signs Temp 97.7 F 07/01/25 11:05 Pulse 74 07/01/25 11:05 Resp 16 07/01/25 11:05 BP 122/60 07/01/25 11:05 Pulse Ox 95 07/01/25 11:05 Oxygen Delivery Method Room Air 07/01/25 11:05 BMI result Body Mass Index 29.6 Tobacco/Smoking Status: Tobacco use Status Tobacco use date assessed 07/01/25 07/01/25 11:10 Patient Tobacco Use Status Never used Tobacco 07/01/25 11:05 e-Cigarette/Vaping Use Never Used 07/01/25 11:05 Thrive Assessment: Date of Thrive Assessment Date Thrive assessed 10/20/24 07/01/25 10:59 Currently or been in a relationship where the following occur: No concerns reported Const General: well developed; No acute distress Nutritional Appearance: well nourished Orientation/consciousness: patient oriented x3 [facility] Head: Yes normocephalic and Yes atraumatic Eyes General: appearance normal, both eyes and all related structures Pupils: Equal, round and reactive pupils present EOM: EOMs intact bilaterally Resp Effort & Inspection: normal respiratory effort Neuro General: patient oriented x3 and gait normal Cranial nerves: Yes Equal, round and reactive pupils present Psych Affect: normal affect Results AMB Hemoglobin A1c AMB Hemoglobin A1c 7.8 % Last Edit by Chelle Orosco CMA on 07/01/25 11:11 Results Reviewed Results Reviewed: Laboratory Last Values Hgb A1c (Clinic) 7.8 % (4.0-6.0) H 07/01/25 11:10 Coding Level of Care Code Est Pt Level 4 (67197) Diagnoses Diabetes E11.9 Hyperlipidemia E78.5 Hypertension I10 Elevated liver enzymes R74.8 Unsteady gait R26.81 Imbalance R26.89 Assessment & Plan Assessment & Plan (1) Diabetes: Code(s): E11.9 - Type 2 diabetes mellitus without complications Category: Medical Plan: A1c is still too high at 7.8%. Goal is around 7%. Had started him back on metformin at last visit. He is tolerating 500 mg daily . Will increase this to 500 mg b.i.d. Continue sitagliptin and glipizide ER as prescribed Continue working on a diabetic diet Encouraged exercise as tolerated (2) Hyperlipidemia: Code(s): E78.5 - Hyperlipidemia, unspecified Category: Medical Plan: Patient will get his labs drawn prior to next visit and we will review (3) Hypertension: Code(s): I10 - Essential (primary) hypertension Category: Medical Plan: Blood pressure is controlled. Less than 140/90 Continue current medications (4) Elevated liver enzymes: Code(s): R74.8 - Abnormal levels of other serum enzymes Category: Medical Plan: Patient has not gotten his labs drawn but will do so and we will review at his next visit (5) Unsteady gait: Code(s): R26.81 - Unsteadiness on feet Category: Medical (6) Imbalance: Code(s): R26.89 - Other abnormalities of gait and mobility Category: Medical Plan Wide based gait and unsteady. Patient also notes some falling forward and listing. Mildly positive dxoblo-hw-tvca test Patient still drinks about 2 drinks per day. Encouraged weaning Referred to neurology Orders: Orders Lipid Panel Today E78.5 - Hyperlipidemia, unspecified, Z00.00 - Encounter for general adult medical examination without abnormal findings AMB Hemoglobin A1c Today E11.9 - Type 2 diabetes mellitus without complications Comprehensive [place]. Panel Fast Today R74.8 - Abnormal levels of other serum enzymes, Z00.00 - Encounter for general adult medical examination without abnormal findings Referrals Neurology Referral R26.89 - Other abnormalities of gait and mobility Medications: Changed From metformin 250 mg (1/2 x 500 mg) PO BID 90 days 90 tabs 3RF To metformin 500 mg PO BID 180 tabs 3RF 90 days
[2025-07-01 11:05] VITALS: BP 122/60; PULSE 74; RESP 16; TEMP 36.5; O2SAT 95; BMI 29.6
== END 2025-07-01 11:47 | disposition home or self-care (01) ==
LOC: HO.HMCFM 10:50
PROVIDERS: PCP Family Medicine; Visit Provider Family Medicine
DX: E11.9 Type 2 diabetes mellitus without complications (principal); E78.5 Hyperlipidemia, unspecified; I10 Essential (primary) hypertension; R74.8 Abnormal levels of other serum enzymes; R26.81 Unsteadiness on feet; R26.89 Other abnormalities of gait and mobility

== ENCOUNTER → 2025-07-01 10:49 | Outpatient (BNVA) | payer OTHER, SELFPAY | PROVIDERS: PCP Family Medicine; Visit Provider Family Medicine | DX: E11.9 Type 2 diabetes mellitus without complications (principal); E78.5 Hyperlipidemia, unspecified; I10 Essential (primary) hypertension; R74.8 Abnormal levels of other serum enzymes; R26.81 Unsteadiness on feet; R26.89 Other abnormalities of gait and mobility | CPT/HCPCS: 83036 ==